=== PATIENT | male | born 1995 | race Caucasian/White ===

== ENCOUNTER 2020-07-23 12:22 | Emergency (ER) | payer MEDICAID, SELFPAY ==
--- NOTE | 2020-07-23 | ECG_ITS ---
Test Reason : +DVT Blood Pressure : / mmHG Vent. Rate : 063 BPM Atrial Rate : 063 BPM P-R Int : 182 ms QRS Dur : 070 ms QT Int : 398 ms P-R-T Axes : 070 074 062 degrees QTc Int : 407 ms Normal sinus rhythm Normal ECG No previous ECGs available Referred By: Asim Blue Electronically Signed By:Shant Blank
--- NOTE | ~2020-07-23 | US_ITS ---
EXAMINATION: US VENOUS ULTRASOUND WITH DOPPLER LOWER EXTREMITY, LEFT CLINICAL INFORMATION: Pain and swelling. COMPARISON: No priors. TECHNIQUE: Ultrasound of the deep veins is performed from the hip to the calf with compression sonography and color and pulse Doppler assessment. Spectral analysis with color-flow imaging is performed. FINDINGS: Near completely occlusive thrombus is noted in the femoral vein proximal, mid, and distal portions as well as the popliteal vein, peroneal vein, and posterior tibial vein respectively. The visualized common femoral vein, greater saphenous vein, and profunda femoral vein shows no evidence of deep venous thrombosis. There is no significant popliteal fossa cyst. US/US venous duplex LE LT IMPRESSION: Left lower extremity: Near occlusive DVT in the femoral vein, popliteal vein, peroneal vein, and posterior tibial vein.
--- NOTE | ~2020-07-23 | CT_ITS ---
EXAMINATION: CT ANGIOGRAM OF THE CHEST WITH AND WITHOUT CONTRAST (CT PULMONARY ANGIOGRAM FOR PE) CLINICAL INFORMATION: DVT, rule out PE COMPARISON: None TECHNIQUE: Prior to contrast administration, noncontrast localization images were obtained. Subsequently, multidetector volumetric imaging was performed from the thoracic inlet to below the diaphragms following the administration of 66 mL Omnipaque 350 intravenous contrast. No contrast reaction reported Sagittal, coronal, and MIP oblique sagittal reformatted images were obtained on the CT workstation, uploaded to PACS, and reviewed. This CT examination was performed using dose optimization techniques as appropriate, variously including the following: *Automated exposure control *Adjustment of mA and/or kV according to patient size (this includes techniques or standardized protocols for targeted exams where dose is matched to indication/reason for exam; i.e. extremities or head) *Use of iterative reconstruction technique Total exam dose-length product 215 mGy-cm FINDINGS: QUALITY OF STUDY/CONTRAST BOLUS: Satisfactory. PULMONARY ARTERIES: Pulmonary embolic burden is very low. There is a small nonocclusive thrombus within the right lower lobe segmental pulmonary artery serving the lateral and posterior segments, nonocclusive. Tiny subsegmental embolus also seen within the left lower lobe, nonocclusive. Reference images are made. THORACIC AORTA: No aneurysm or dissection. LUNG: No focal consolidation, nodules or masses. PLEURA: No pleural effusion or pneumothorax. MEDIASTINUM: Normal heart size. No pericardial effusion. No hilar or mediastinal lymphadenopathy. No evidence of septal bowing or right heart strain. CHEST WALL/AXILLA: No axillary or internal mammary lymphadenopathy. OSSEOUS STRUCTURES: No acute or suspicious osseous abnormality. UPPER ABDOMEN: Unremarkable. No reflux of contrast into the hepatic veins to suggest elevated right heart pressures. CT/CT angio chest PE protocol IMPRESSION: There are 2 areas of nonocclusive pulmonary emboli within the lower lobes, subsegmental on the left and segmental on the right. No evidence of right heart strain. VTE: positive
--- NOTE | ~2020-07-23 | XR_ITS ---
EXAMINATION: XR ANKLE, LEFT CLINICAL INFORMATION: Pain COMPARISON: None TECHNIQUE: AP, lateral, and mortise views of the left ankle. FINDINGS: The bones and soft tissues are normal. No fracture. Alignment is anatomic. Joint spaces are maintained. No joint effusion. XR/XR ankle LT 2V IMPRESSION: Normal left ankle.
[2020-07-23 12:30] VITALS: BP 152/90; PULSE 78; RESP 16; TEMP 36.9; O2SAT 97; BMI 19.8
[2020-07-23 14:26] LABS: MANUAL DIFF FLAG NO
[2020-07-23 14:27] LABS: Basophils Percent Auto 0.4 % (0-2); Eosinophils Absolute Auto 0.5 X10*3/uL (0.0-0.4); Eosinophils Percent Auto 4.2 % (0-4); Hematocrit 34.3 % (42-52); Hemoglobin 11.6 g/dl (14.0-18.0); Imm Gran Abs Auto 0.03 X10*3/uL (0.00-0.03); Imm Gran Pct Auto 0.3 % (0.0-0.4); Lymphocytes Absolute Auto 1.9 X10*3/uL (1.2-4.9); Lymphocytes Percent Auto 17.3 % (20-40); Mean Corpuscular HGB Conc 33.8 g/dl (31.0-36.0); Mean Corpuscular Hemoglobin 29.1 pg (27.0-33.0); Mean Corpuscular Volume 86.2 fL (80-98); Mean Platelet Volume 9.9 fL (9.4-12.4); Monocytes Absolute Auto 0.8 X10*3/uL (0.1-1.2); Monocytes Percent Auto 7.3 % (2-11); Neutrophils Absolute Auto 7.6 X10*3/uL (2.0-8.3); Neutrophils Percent Auto 70.5 % (45-73); Platelet Count 125 X10*3/uL (160-400); Red Blood Count 3.98 X10*6/uL (4.60-5.80); Red Cell Distribution Width 12.4 % (11.0-16.0); White Blood Count 10.8 X10*3/uL (4.8-10.8)
[2020-07-23 14:28] LABS: Appearance Urine CLEAR; Color Urine YELLOW; Glucose Urine UA NEG (NEG); Leukocyte Esterase Urine NEG (NEG); Nitrite Urine NEG (NEG); Urine Blood NEG (NEG); Urine Ketones NEG (NEG); Urine Protein NEG (NEG-TRACE)
--- NOTE | 2020-07-23 14:29 | ED.LOWEXIN ---
HPI - Extremity Injury (Lower) General Chief Complaint: Extremity Injury, Lower Stated Complaint: left leg swelling ?inj Time Seen by Provider: 07/23/20 12:59 Source: patient Mode of arrival: ambulatory Limitations: no limitations History of Present Illness HPI Narrative: This is a otherwise healthy 25-year-old male who denies any significant past medical or surgical history he presents with complaint of left lower extremity pain with swelling around the calf and ankle. 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 States this has occurred 3 days ago and has been persistently present and slightly worsening swelling. He otherwise denies any overt injury or fall, recent travel. No current or previous diagnosis of COVID or COVID like symptoms. He denies any personal or family history of blood disorders. MD complaint: other (Left lower extremity swelling/pain from calf to ankle) Related Data Previous Rx's Medication Instructions Recorded apixaban [Eliquis DVT-PE Treat 30D 5 mg PO PER PKG DIR #74 ea 07/23/20 Start] Allergies Allergy/AdvReac Type Severity Reaction Status Date / Time No Known Allergies Allergy Unverified 02/18/20 16:14 Review of Systems Review of Systems: Constitutional: No Weight loss, No Fever, No Chills, No Night Sweats, No Fatigue, No Malaise ENT/Mouth: No Hearing loss, No Ear Pain, No Nasal Congestion, No Sinus Pain, No Hoarseness, No sore throat, No Rhinorrhea, No Swallowing Difficulty Eyes: No Eye Pain, No Swelling, No Redness, No Foreign Body, No Discharge, No Vision Changes Cardiovascular: No Chest Pain, No SOB, No Dyspnea on Exertion, No Orthopnea, left lower extremity swelling as noted per HPI, No Palpitations Respiratory: No Cough, No Sputum, No Wheezing, No Smoke Exposure, No Dyspnea Gastrointestinal: No Nausea, No Vomiting, No Diarrhea, No Constipation, No abdominal Pain, No Hematochezia, No Melena Genitourinary: No Dysuria, No Urinary Frequency, No Hematuria, No Urinary Incontinence, No Urgency, No Flank Pain, No Urinary Flow Changes, No Hesitancy Musculoskeletal: No joint pain, No Myalgias, No Joint Swelling, left lower extremity swelling as noted per HPI Skin: No Skin Lesions, No rash Neuro: No Weakness, No Numbness, No Paresthesias, No Loss of Consciousness, No Dizziness, No Headache Psych:No Social Issues Heme/Lymph: No Bruising, No Bleeding,No Lymphadenopathy Endocrine: No Polyuria, No Polydipsia, No Temperature Intolerance [facility] Past Medical History Medical History (Updated 07/23/20 @ 16:51 by Asim Blue NP) No known health problems Social History Social History Alcohol intake: never Smoking Status: Current every day smoker Use of substances other than those prescribed or required for medical reasons: No Advance Directives: No Advance Directives Information Provided: No Physical Exam Vital Signs: Vital Signs: Last Vital Signs Temp 98.6 F 07/23/20 15:42 Pulse 80 07/23/20 15:42 Resp 18 07/23/20 15:42 BP 152/90 H 07/23/20 12:30 Pulse Ox 97 07/23/20 15:42 Body Mass Index 19.8 Reviewed Const: Other: Appears relatively poorly kempt, disheveled. Compared to a picture on his ID he appears that he has lost some weight facial features more sunken in. General: cooperative; No acute distress or intoxicated appearing Nutritional Appearance: average body habitus Orientation/consciousness: patient oriented x3 HENMT: Head: Yes normal to inspection Ears: hearing grossly normal bilaterally Eyes: General: appearance normal, both eyes and all related structures Visual Mccray: normal visual mccray by confrontation Neck: Neck: Yes normal visual inspection, No positive Brudzinski's sign, No positive Kernig's sign and No tender Thyroid: Thyroid normal Chest: Chest palpation & inspection: normal inspection of the chest Resp: Effort & Inspection: normal respiratory effort Auscultation: clear to auscultation bilaterally Cardio: Jugular venous distension: no JVD Rate: regular rate Heart sounds: S1 normal heart sound present and S2 normal heart sound present GI: Inspection: Yes normal to inspection Palpation (GI): Soft to palpation Percussion: Yes normal to percussion Auscultation: normal bowel sounds : General: Yes no CVA tenderness Back/Spine/Pelvis: Back: no CVA tenderness Skin: General skin exam: no rashes or lesions noted Neuro: General: patient oriented x3 Extrem: Other: All pulses intact General: Yes normal to inspection Right upper extremity: full ROM Left upper extremity: full ROM and edema (Below the knee to the dorsum foot 1+) Course Reevaluation(s) Reevaluation #1: Ultrasound shows near occlusive DVT in the femoral vein, popliteal vein, peroneal vein, and posterior tibial vein. No risk factors or familial history of blood disorders Given the significance of this labs as well as CT of the chest ordered. Reevaluation #2: 1530 Call from [facility] at this time Very small PE on the left Subsegmental pulmonary artery and Right segmental artery Reevaluation #3: Very reluctant stay states his mother has ALS she is very dependent on him initially he stated the primary care doctor at then he tells me that his father does stay and he is trying to arrange this and would like some time to determine whether he will stay or not. I did review his workup findings and and the recommendations stay. Given this uncertainty he was already given 1 dose of Eliquis after his left lower extremity ultrasound and given these additional findings and recommendation by oncology for him stay I have spoken pharmacy recommendation to wait 8 hours and can start heparin drip at that point. I have placed a heparin order for midnight tonight. Additional Reevaluation(s): I spent over 30 minutes with the patient regarding his findings and plan for admission for further evaluation. 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 He understands that if he leaves AMA that is a possibility of worsening in his condition and including but not limited to . States he understand this but his commitment to his mom and again after an extensive conversation he admits to me that he does occasionally snore heroin but does not feel that this is the reason why he cannot stay. He will leave against medical advice with understanding. I will start him on Eliquis he was given his 1st dose here. I have informed Dr. Palacios of this finding and will try to get him in on Saturday or Saturday. I did advise patient to return if he has any red flag symptoms and if he changes mind. Consultations Consultation #1: Case discussed with vascular surgery Dr. Barnett as it relates to the left lower extremity okay for Eliquis for home and close follow-up. Consultation #2: Case discussed hematology Dr. Palacios Recommendation for heparin GTT and admission for further workup. MDM - Extremity Injury (Lower) Lab Data Attestation: I reviewed the patient's lab results. Result diagrams: 07/23/20 14:19 07/23/20 14:19 Labs: Lab Results 07/23/20 07/23/20 07/23/20 Range/Units 14:19 14:19 14:19 WBC 10.8 (4.8-10.8) X10*3/uL RBC 3.98 L (4.60-5.80) X10*6/uL Hgb 11.6 L (14.0-18.0) g/dl Hct 34.3 L (42-52) % MCV 86.2 (80-98) fL MCH 29.1 (27.0-33.0) pg MCHC 33.8 (31.0-36.0) g/dl RDW 12.4 (11.0-16.0) % Plt Count 125 L (160-400) X10*3/uL MPV 9.9 (9.4-12.4) fL Immature Gran % (Auto) 0.3 (0.0-0.4) % Neut % (Auto) 70.5 (45-73) % Lymph % (Auto) 17.3 L (20-40) % [place] % (Auto) 7.3 (2-11) % Eos % (Auto) 4.2 H (0-4) % Baso % (Auto) 0.4 (0-2) % Lymph # (Auto) 1.9 (1.2-4.9) X10*3/uL [place] # (Auto) 0.8 (0.1-1.2) X10*3/uL Eos # (Auto) 0.5 H (0.0-0.4) X10*3/uL Baso # (Auto) 0.0 (0.0-0.2) X10*3/uL Abs Immat Gran (auto) 0.03 (0.00-0.03) X10*3/uL Absolute Neuts (auto) 7.6 (2.0-8.3) X10*3/uL Absolute Nucleated RBC 0.000 (0.0-0.012) X10*3/uL Nucleated RBC % (auto) 0.0 (0.0-0.2) /100WBC PT 14.7 H (10.8-13.0) SEC INR 1.2 H (0.9-1.1) APTT 36.8 (24.1-38.0) SEC Sodium 139 (135-145) mmol/L Potassium 4.2 (3.3-5.1) mmol/L Chloride 102 (96-108) mmol/L Carbon Dioxide 29 (22-29) mmol/L Anion Gap 12 (12-20) BUN 19 H (9-16) mg/dL Creatinine 0.94 (0.5-1.4) mg/dL Estim Creat Clear Calc 98.4 Estimated GFR > 60 Random Glucose 119 H (60-115) mg/dL Calcium 8.8 (8.4-10.2) mg/dL Total Bilirubin 0.4 (0.0-1.0) mg/dL AST 17 (5-37) U/L ALT 15 (0-40) U/L Alkaline Phosphatase 64 (39-117) U/L Total Protein 7.0 (6.5-8.0) g/dL Albumin 4.1 (3.5-5.0) g/dL Urine Color Urine Appearance Urine pH (5.0-8.0) Ur Specific [place] (1.005-1.025) Urine Protein (NEG-TRACE) MG/DL Urine Glucose (UA) (NEG) MG/DL Urine Ketones (NEG) MG/DL Urine Blood (NEG) Urine Nitrite (NEG) Ur Leukocyte Esterase (NEG) Urine RBC (0) /HPF Urine WBC (0-4) /HPF Ur Squamous Epith Cells /LPF Urine Bacteria /LPF 07/23/20 Range/Units 14:21 WBC (4.8-10.8) X10*3/uL RBC (4.60-5.80) X10*6/uL Hgb (14.0-18.0) g/dl Hct (42-52) % MCV (80-98) fL MCH (27.0-33.0) pg MCHC (31.0-36.0) g/dl RDW (11.0-16.0) % Plt Count (160-400) X10*3/uL MPV (9.4-12.4) fL Immature Gran % (Auto) (0.0-0.4) % Neut % (Auto) (45-73) % Lymph % (Auto) (20-40) % [place] % (Auto) (2-11) % Eos % (Auto) (0-4) % Baso % (Auto) (0-2) % Lymph # (Auto) (1.2-4.9) X10*3/uL [place] # (Auto) (0.1-1.2) X10*3/uL Eos # (Auto) (0.0-0.4) X10*3/uL Baso # (Auto) (0.0-0.2) X10*3/uL Abs Immat Gran (auto) (0.00-0.03) X10*3/uL Absolute Neuts (auto) (2.0-8.3) X10*3/uL Absolute Nucleated RBC (0.0-0.012) X10*3/uL Nucleated RBC % (auto) (0.0-0.2) /100WBC PT (10.8-13.0) SEC INR (0.9-1.1) APTT (24.1-38.0) SEC Sodium (135-145) mmol/L Potassium (3.3-5.1) mmol/L Chloride (96-108) mmol/L Carbon Dioxide (22-29) mmol/L Anion Gap (12-20) BUN (9-16) mg/dL Creatinine (0.5-1.4) mg/dL Estim Creat Clear Calc Estimated GFR Random Glucose (60-115) mg/dL Calcium (8.4-10.2) mg/dL Total Bilirubin (0.0-1.0) mg/dL AST (5-37) U/L ALT (0-40) U/L Alkaline Phosphatase (39-117) U/L Total Protein (6.5-8.0) g/dL Albumin (3.5-5.0) g/dL Urine Color YELLOW Urine Appearance CLEAR Urine pH 7.0 (5.0-8.0) Ur Specific [place] 1.010 (1.005-1.025) Urine Protein NEG (NEG-TRACE) MG/DL Urine Glucose (UA) NEG (NEG) MG/DL Urine Ketones NEG (NEG) MG/DL Urine Blood NEG (NEG) Urine Nitrite NEG (NEG) Ur Leukocyte Esterase NEG (NEG) Urine RBC 0 (0) /HPF Urine WBC 0 (0-4) /HPF Ur Squamous Epith Cells NONE /LPF Urine Bacteria NONE /LPF Imaging Data Left lower extremity ultrasound: Radiologist's impression: [address] [id number] ReportSigned Patient: Fritz LawrenceMR#: [id number]: 1995Acct:[id number]/Sex: 25 / MADM Date: 07/23/20Loc: Lul Dr: Ordering Physician: Asim Blue NP Date of Service: 07/23/20 Procedure(s): US venous duplex LE LT Accession Number(s): [id number] cc: Asim Blue NURSING CENTER TUTOR~ EXAMINATION: US VENOUS ULTRASOUND WITH DOPPLER LOWER EXTREMITY, LEFT CLINICAL INFORMATION: Pain and swelling. COMPARISON: No priors. TECHNIQUE: Ultrasound of the deep veins is performed from the hip to the calf with compression sonography and color and pulse Doppler assessment. Spectral analysis with color-flow imaging is performed. FINDINGS: Near completely occlusive thrombus is noted in the femoral vein proximal, mid, and distal portions as well as the popliteal vein, peroneal vein, and posterior tibial vein respectively. The visualized common femoral vein, greater saphenous vein, and profunda femoral vein shows no evidence of deep venous thrombosis. There is no significant popliteal fossa cyst. US/US venous duplex LE LT IMPRESSION: Left lower extremity: Near occlusive DVT in the femoral vein, popliteal vein, peroneal vein, and posterior tibial vein. Dictated By:Rhonda Connors MDSigned By:<Electronically signed by Rhonda Connors MD in [place]>07/23/20 1415 DD/ 1302TD/TT: Geospatial Systems Integrator: Left ankle x-ray: Radiologist's impression: [address] [id number] ReportSigned Patient: Fritz LawrenceMR#: [id number]: 1995Acct:[id number]/Sex: 25 / MADM Date: 07/23/20Loc: HO.EDAttending Dr: Ordering Physician: Joanna Galvez DO Date of Service: 07/23/20 Procedure(s): XR ankle LT 2V Accession Number(s): [id number] cc: Joanna Galvze DO~ EXAMINATION: XR ANKLE, LEFT CLINICAL INFORMATION: Pain COMPARISON: None TECHNIQUE: AP, lateral, and mortise views of the left ankle. FINDINGS: The bones and soft tissues are normal. No fracture. Alignment is anatomic. Joint spaces are maintained. No joint effusion. XR/XR ankle LT 2V IMPRESSION: Normal left ankle. Dictated By:ZANDRA MARTIN MDSigned By:<Electronically signed by ZANDRA MARTIN MD in [place]>07/23/20 1308 DD/ 1233TD/TT: Geospatial Systems Integrator: DEJA Discharge Plan Discharge Clinical Impression: Pulmonary embolism Qualifiers: Pulmonary embolism type: unspecified Chronicity: acute Acute cor pulmonale presence: unspecified Qualified Code(s): I26.99 - Other pulmonary embolism without acute cor pulmonale DVT of lower limb, acute Qualifiers: Laterality: left Patient Disposition: Left Against Medical Advice Instructions: Deep Vein Thrombosis (ED), Computed Tomography Scan (ED) Additional Instructions: You have blood clots on the both sides of your lungs You have blood clots in the left side of your leg We have recommended that you stay in the hospital for further evaluation and treatment You have declined this with understand that you may go home and get worse and . You will be sign out against medical advice as I have reviewed in great detail Return if you have any change in mind or concerning symptoms as reviewed Started her blood thinners as prescribed Your given her 1st dose of your blood thinner (Eliquis) a prescription has been sent over to her pharmacy You will need to see the blood specialist Dr. Palacios please call on Saturday You also need to see a vascular doctor Dr. Barnett also call Saturday for an appointment Return if any concerns or worsening symptoms Thank you Prescriptions: New Eliquis DVT-PE Treat 30D Start 5 mg (74 tabs) tablets,dose pack 5 mg PO PER PKG DIR Qty: 74 RF: 0 Referrals: Gilberto Palacios MD [Physician] - 1 day Amari Clark NP [Primary Care Provider] - 5 days Durga Barnett MD [Physician] - 2 days Stand Alone Forms: Against Medical Advice
[2020-07-23 14:32] LABS: INTERNATIONAL NORM RATIO 1.2 (0.9-1.1); Prothrombin Time 14.7 SEC (10.8-13.0)
--- NOTE | 2020-07-23 14:33 | PC.NURSE ---
+BILATERAL PEDAL PULSES WITH DOPPLER.
[2020-07-23 14:35] LABS: RBC Urine 0 /HPF (0); WBC Urine 0 /HPF (0-4)
[2020-07-23 14:35] LABS: Partial Thromboplastin Time 36.8 SEC (24.1-38.0)
[2020-07-23 14:48] LABS: Alanine Aminotransferase 15 U/L (0-40); Albumin Level 4.1 g/dL (3.5-5.0); Alkaline Phosphatase 64 U/L (39-117); Anion Gap 12 (12-20); Aspartate Amino Transferase 17 U/L (5-37); Bilirubin Total 0.4 mg/dL (0.0-1.0); Blood Urea Nitrogen 19 mg/dL (9-16); Calcium 8.8 mg/dL (8.4-10.2); Carbon Dioxide 29 mmol/L (22-29); Chloride 102 mmol/L (96-108); Creatinine Clr Calc Pharmacy 98.4; Estimated Glomerular Filt Rate > 60; Glucose Random 119 mg/dL (60-115); Potassium 4.2 mmol/L (3.3-5.1); Sodium 139 mmol/L (135-145)
[2020-07-23] MEDS: Apixaban 5 MG TABLET PO (15:16)
[2020-07-23] MEDS: iohexoL 350 MG/ML 100 ML INFUS..BTL IV (15:17)
[2020-07-23 15:42] VITALS: PULSE 80; RESP 18; TEMP 37; O2SAT 97
[2020-07-23 16:19] LABS: Troponin-I High Sensitivity < 3.5 ng/L (<3.5-35.0)
[2020-07-23 16:56] LABS: Influenza A PCR NEGATIVE (Negative); Influenza B PCR NEGATIVE (Negative); Resp Syncy Virus RNA Qual PCR NEGATIVE (Negative); SARS COV2 PCR INHOUSE NEGATIVE (Negative)
[2020-07-23 17:04] LABS: Amphetamine Screen Urine Not Detected (Not Detect); Barbiturates, Urine Not Detected (Not Detect); Benzodiazepines Screen Urine Not Detected (Not Detect); Cannabinoid Screen Urine POSITIVE (Not Detect); Cocaine Screen Urine Not Detected (Not Detect); Opiate Screen Urine POSITIVE (Not Detect); Phencyclidine Screen Urine Not Detected (Not Detect)
== END 2020-07-23 17:07 | disposition left against medical advice (07) ==
PROVIDERS: Nurse Practitioner Primary Care; Emergency Provider Emergency Medicine; PCP Nurse Practitioner Family
DX: I26.99 Other pulmonary embolism without acute cor pulmonale (principal); I82.402 Acute embolism and thrombosis of unspecified deep veins of left lower extremity; Z20.822 Contact with and (suspected) exposure to COVID-19; F11.20 Opioid dependence, uncomplicated
CPT/HCPCS: 0241U; 36415; 71275; 73600; 80053; 80307; 81001; 84484; 85025; 85610; 85730; 93005; 93971; 96374; 99284; Q9967

== ENCOUNTER 2020-07-23 22:48 | Inpatient (IN) | payer MEDICAID, SELFPAY ==
[2020-07-23 22:51] VITALS: BP 106/56; PULSE 107; RESP 18; TEMP 36.6; O2SAT 99; BMI 20.5
[2020-07-24] VITALS: BP 100/55; PULSE 80; RESP 18; TEMP 36.9; O2SAT 96
--- NOTE | 2020-07-24 00:22 | ED_ITS ---
HPI - General Adult General Chief complaint: General Medical Stated complaint: dvt Time Seen by Provider: 07/24/20 00:21 Source: patient Mode of arrival: ambulatory Limitations: no limitations History of Present Illness HPI narrative: Patient was seen here earlier for left leg swelling and pain for last 3 days diagnosed with near occlusive DVT in left femoral vein to popliteal vein peroneal vein and posterior tibial vein also had PE patient denies any shortness of breath was given Eliquis tablet and plan to admit but patient had family issues and left AMA to go home, now comes back for further management. Earlier provider spoke to oncologist plan was to start him on heparin Onset (ago): day(s) (3) Related Data Home Medications Medication Instructions Recorded Confirmed No Known Home Meds 07/24/20 07/24/20 Allergies Allergy/AdvReac Type Severity Reaction Status Date / Time No Known Allergies Allergy Verified 07/23/20 22:54 Review of Systems Review of Systems: Constitutional : No Weight loss, No Fever, No Chills ENT/Mouth : No sore throat, No Rhinorrhea Eyes: No Eye Pain, No Swelling Cardiovascular : No Chest Pain, no palpitations Respiratory : No Cough, No Sputum, no shortness of breath Gastrointestinal : no Nausea, No Vomiting, No Diarrhea, No abdominal Pain, no black stools Genitourinary : No Dysuria, No Urinary Frequency Musculoskeletal : No joint pain, No Myalgias, No Joint Swelling , left leg swelling+ Skin : No Skin Lesions, No rash Neuro : No Weakness, No Numbness, No Dizziness, No Headache Psych : No Anxiety/Panic, No Depression Heme/Lymph: No Bruising, No Lymphadenopathy Endocrine : No Polyuria, No Polydipsia All other systems reviewed and are negative PMFSH Past Medical History Medical History No known health problems Social History Social History Alcohol intake: never Smoking Status: Current every day smoker Smoked in Last 30 Days: Yes Use of substances other than those prescribed or required for medical reasons: No Advance Directives: No Advance Directives Information Provided: No Physical Exam Vital Signs: Vital Signs: Last Vital Signs Temp 98.4 F 07/24/20 00:00 Pulse 80 07/24/20 00:00 Resp 18 07/24/20 00:00 BP 100/55 L 07/24/20 00:00 Pulse Ox 96 07/24/20 00:00 Body Mass Index 20.5 Appearance: Alert. Oriented X3. No acute distress. Eyes: Pupils equal, round and reactive to light. ENT: Pharynx normal. Neck: Normal inspection. Neck supple. CVS: Normal heart rate and rhythm. Pulses normal. Respiratory: No respiratory distress. Breath sounds normal. Abdomen: Soft and nontender. Bowel sounds are present, no mass palpable, no CVA tenderness Skin: Skin warm and dry. Normal skin color. Normal skin turgor. Extremities: Left leg calf tenderness+ Helen sign positive neurovascular intact Neuro: Oriented X 3. No motor deficit. No sensory deficit. Medical Decision Making MDM Narrative Medical decision making narrative: Patient with massive DVT on left leg with PE without any right ventricular strain or shortness of breath vitals are stable etiology of DVT not very clear no other family member has DVT. At this time will admit patient for IV heparin plan to see drop hammer mechanic in the morning and vascular surgeon to follow Discharge Plan Discharge Clinical Impression: DVT of leg (deep venous thrombosis) Qualifiers: Affected thrombotic vein of extremity: femoral Chronicity: acute Laterality: left Qualified Code(s): I82.412 - Acute embolism and thrombosis of left femoral vein Pulmonary embolism Qualifiers: Pulmonary embolism type: single subsegmental (without acute cor pulmonale) Qualified Code(s): I26.93 - Single subsegmental pulmonary embolism without acute cor pulmonale Patient Disposition: Admitted As Inpatient
--- NOTE | 2020-07-24 01:07 | PM.IMHP ---
History of Present Illness Date of Service: 07/24/20 Chief Complaint: left leg pain 25-year-old male with no significant past medical history presented to the hospital with a chief complaint of left leg pain. Patient mentioned that the pain started about 3 days ago and has been having gradual worsening of the pain along with swelling. Denies any chest pain palpitations lightheadedness dizziness or shortness of breath. Denies fever chills cough. Review of all other systems is negative except mentioned above ER course: Patient initially presented in the morning with these symptoms and had a DVT study which showed complete occlusion of the femoral vein. And CT chest showed segmental and subsegmental PE. Patient was advised to stay in the hospital for further management. 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 He left AMA. At that time he received 1 dose of Eliquis. And subsequently came back to the hospital for admission. Patient was started on heparin drip. ER team also notified the Hematology-Oncology and vascular surgery. [facility] Medical History No known health problems Social History Alcohol intake: never Smoking Status: Current every day smoker Smoked in Last 30 Days: Yes Use of substances other than those prescribed or required for medical reasons: No Advance Directives: No Advance Directives Information Provided: No Meds Allergies Allergy/AdvReac Type Severity Reaction Status Date / Time No Known Allergies Allergy Verified 07/23/20 22:54 Active Medications: Current Medications Generic Name Dose Route Start Last Admin Trade Name Nicolasa PRN Reason Stop Dose Admin Acetaminophen 650 mg 07/24/20 01:04 Acetaminophen 325 Mg Tablet PO Q6H PRN Pain, Mild (Pain Scale 1-3) Heparin Sodium (Porcine) 2,400 unit 07/24/20 00:26 Heparin Sodium,Porcine 5,000 Unit/Ml Vial 40 unit/kg (2400 unit) IVPUSH BOLUS PRN 40 unit/kg - Heparin Protocol Heparin Sodium/Sodium Chloride 25,000 unit in 250 mls @ 0 mls/hr 07/24/20 00:30 IVCONT .Q0M ORLIN Protocol Per Protocol Heparin Sodium/Sodium Chloride 25,000 unit in 250 mls @ 0 mls/hr 07/24/20 01:15 IVCONT .Q0M [facility] Protocol Per Protocol Sodium Chloride 3 ml 07/24/20 08:00 0.9 % Sodium Chloride Flush 3 Ml Syringe IVFLUSH QSHIFT [facility] Home Medications Medication Instructions Recorded Confirmed Last Taken Type No Known Home Meds 07/24/20 07/24/20 Unknown History Physical Exam Vital Signs and Narrative: Vital Signs: Last Vital Signs Temp 98.4 F 07/24/20 00:00 Pulse 80 07/24/20 00:00 Resp 18 07/24/20 00:00 BP 100/55 L 07/24/20 00:00 Pulse Ox 96 07/24/20 00:00 Body Mass Index 20.5 Gen: Appears be in no acute distress HEENT: NCAT, Moist mucosa. Pulmonary: Vesicular breath sounds, fair air entry CVS: Normal S1-S2 Abdomen: BS+, Soft, Nontender Extremities: Warm well perfused; left leg he has warm, tender and swollen. Neuro: Alert and awake. Assessment and Plan (1) DVT of leg (deep venous thrombosis): Qualifiers: Affected thrombotic vein of extremity: femoral Chronicity: acute Laterality: left Qualified Code(s): I82.412 - Acute embolism and thrombosis of left femoral vein Status: Acute 25-year-old male with no significant past medical history presented to the hospital with a chief complaint of left lower extremity pain , swelling noted to have DVT as well as PE. Admitted to the hospital for further management. DVT/PE: Left lower extremity duplex showed complete occlusion of the left femoral vein.-consulted vascular surgery for further recommendations. CT chest showed segmental and subsegmental PE. No right heart strain noted vital stable, troponin negative.-will obtain echocardiogram. Continue heparin drip Will consult Oncology for further recommendations Substance abuse: Patient's U tox positive for opiates and cannabis. Counseled to avoid illicit drug use. Code status: Full code
[2020-07-24 01:10] LABS: PTT Heparin Drip 37.9 SEC (53-77.9)
[2020-07-24] MEDS: Heparin Sodium,Porcine/1/2NS 25,000 UNIT/250 ML IV.SOLN 8.57 UNIT IVCONT (01:36)
[2020-07-24 01:38] VITALS: BP 102/56; PULSE 68; RESP 18; TEMP 36.6; O2SAT 96
[2020-07-24 06:12] VITALS: PULSE 70; RESP 19
[2020-07-24 07:02] LABS: MANUAL DIFF FLAG NO
[2020-07-24 07:09] LABS: Basophils Absolute Auto 0.1 X10*3/uL (0.0-0.2); Basophils Percent Auto 0.5 % (0-2); Eosinophils Absolute Auto 0.5 X10*3/uL (0.0-0.4); Eosinophils Percent Auto 4.3 % (0-4); Hematocrit 34.9 % (42-52); Hemoglobin 11.9 g/dl (14.0-18.0); Imm Gran Abs Auto 0.04 X10*3/uL (0.00-0.03); Imm Gran Pct Auto 0.4 % (0.0-0.4); Lymphocytes Absolute Auto 2.9 X10*3/uL (1.2-4.9); Lymphocytes Percent Auto 27.2 % (20-40); Mean Corpuscular HGB Conc 34.1 g/dl (31.0-36.0); Mean Corpuscular Hemoglobin 29.5 pg (27.0-33.0); Mean Corpuscular Volume 86.4 fL (80-98); Mean Platelet Volume 9.8 fL (9.4-12.4); Monocytes Absolute Auto 0.9 X10*3/uL (0.1-1.2); Monocytes Percent Auto 8.7 % (2-11); Neutrophils Absolute Auto 6.3 X10*3/uL (2.0-8.3); Neutrophils Percent Auto 58.9 % (45-73); Platelet Count 135 X10*3/uL (160-400); Red Blood Count 4.04 X10*6/uL (4.60-5.80); Red Cell Distribution Width 12.5 % (11.0-16.0); White Blood Count 10.6 X10*3/uL (4.8-10.8)
[2020-07-24 07:29] LABS: Anion Gap 12 (12-20); Blood Urea Nitrogen 19 mg/dL (9-16); Calcium 8.4 mg/dL (8.4-10.2); Carbon Dioxide 29 mmol/L (22-29); Chloride 103 mmol/L (96-108); Creatinine Clr Calc Pharmacy 105.6; Estimated Glomerular Filt Rate > 60; Glucose Random 85 mg/dL (60-115); Potassium 4.4 mmol/L (3.3-5.1); Sodium 140 mmol/L (135-145)
[2020-07-24] MEDS: Apixaban 5 MG TABLET 10 MG PO (10:19)
[2020-07-24 11:26] VITALS: BP 103/65; PULSE 75; RESP 14; TEMP 36.4; O2SAT 97
--- NOTE | 2020-07-24 14:03 | PM.HEMONCCN ---
Subjective - Subjective Chief complaint: DVT/PE Patient: new to practice Consult date: 07/24/20 Primary Care Provider: Unknown Physician HPI - Consult Narrative Reason for consult: DVT/PE Narrative: Fritz Lawrence is a 25 year old male who has been found to have extensive thrombosis of the left leg veins and two small pulmonary emboli. He has no family history of clotting or bleeding disorders. Review of Systems - Constitutional Reports weakness - Gastrointestinal Reports other - Genitourinary Genitourinary: Reports other - Musculoskeletal Reports radiating pain into limb - Integumentary/Breasts Skin/Breast: Reports skin pain - Neurologic Reports system reviewed and no additional complaints, except as documented Oncology Screenings - G8 Geriatric Assessment Change in food intake over past 3 months: No decrease in food intake Weight loss during the last 3 months: Does not know Mobility: Goes out Neuropsychological problems: No psychological problems Body Mass Index: 23 or greater Patient takes > 3 prescription drugs per day: No Patient's assessment of health status compared to others: Does not know Patient age: < 80 G8 Score: 14 G8 Risk Level: Intermediate risk for early functional decline and reduced survival [facility] Medical History: Medical History (Last Reviewed 07/24/20 @ 00:35 by Arcadio Monzon MD) No known health problems Social History: Social History (Last Reviewed 07/24/20 @ 00:35 by Arcadio Monzon MD) Alcohol History: Alcohol intake: never Tobacco History: Smoking Status: Current every day smoker Smoked in Last 30 Days: Yes Substance Use History: Use of substances other than those prescribed or required for medical reasons: No Advance Directives: Advance Directives: No Advance Directives Information Provided: No Smoking status: Current every day smoker Home Medications and Allergies Current Medications: Current Medications Generic Name Dose Route Start Last Admin Trade Name Freq PRN Reason Stop Dose Admin Acetaminophen 650 mg 07/24/20 01:04 Acetaminophen 325 Mg Tablet PO Q6H PRN Pain, Mild (Pain Scale 1-3) Apixaban 10 mg 07/24/20 09:30 07/24/20 10:19 Apixaban 5 Mg Tablet PO 10 mg BID ORLIN Administration Methadone HCl 30 mg 07/24/20 10:15 07/24/20 11:22 Methadone Hcl 1 Mg/0.1 Ml Oral.Conc PO 30 mg DAILY ORLIN Administration Sodium Chloride 3 ml 07/24/20 08:00 07/24/20 08:41 0.9 % Sodium Chloride Flush 3 Ml Syringe IVFLUSH Not Given QSHIFT [facility] Home Medications Medication Instructions Recorded Confirmed Type No Known Home Meds 07/24/20 07/24/20 History Allergies Allergy/AdvReac Type Severity Reaction Status Date / Time No Known Allergies Allergy Verified 07/23/20 22:54 Physical Exam Vital signs: Vital Signs Temp 97.6 F 07/24/20 11:26 Pulse 75 07/24/20 11:26 Resp 14 07/24/20 11:26 BP 103/65 07/24/20 11:26 Pulse Ox 97 07/24/20 11:26 Intake & Output 07/23/20 07/24/20 07/24/20 18:59 06:59 18:59 Intake Total 0 / 0 62.418 / 62.418 Balance 0 / 0 62.418 / 62.418 Intake: Intake, Oral Amount 0 / 0 Intake, IV Amount 62.418 / 62.418 Heparin Sodium,Porcine/1/2NS 25 62.418 / 62.418 ,000 unit In 250 ml @ Per Protocol IVCONT .Q0M [facility] Rx#: [id number] Other: Meal Refused No NPO No Weight 61.235 kg Weight 61.235 kg - Constitutional Present: no acute distress - Routine HEENT Exam Head: Present: atraumatic Eye: Present: normal appearance ENT: Present: normal exam - Routine Neck Exam Present: supple - Routine Chest/Breast/Axilla Exam Breast: Present: Normal Exam - Routine Respiratory Exam Present: decreased breath sounds - Routine Cardiovascular Exam Cardiovascular: Present: RRR - Routine Abdominal Exam Present: hyperactive bowel sounds - Routine Rectal Exam Patient deferred: visual exam - Routine Extremities Exam Present: calf tenderness Hem/Onc Consult Result - Labs CBC & Chem 7: 07/24/20 06:52 07/24/20 06:52 Labs: Short CBC 07/24/20 Range/Units 06:52 WBC 10.6 (4.8-10.8) X10*3/uL Hgb 11.9 L (14.0-18.0) g/dl Hct 34.9 L (42-52) % Plt Count 135 L (160-400) X10*3/uL BMP 07/24/20 06:52 Sodium 140 Potassium 4.4 Chloride 103 Carbon Dioxide 29 BUN 19 H Creatinine 0.91 Calcium 8.4 Assessment and Plan (1) DVT of leg (deep venous thrombosis) Start date: 07/24/20 (He is appropriately on lmw heparin. He is stable. A thrombophilia work up has been ordered. He may start on Eliquis.) Status: Acute Qualifiers: Affected thrombotic vein of extremity: femoral Chronicity: acute Laterality: left Qualified Code(s): I82.412 - Acute embolism and thrombosis of left femoral vein
[2020-07-24 14:14] VITALS: BP 102/72; PULSE 70; RESP 19; TEMP 36.6; O2SAT 98
[2020-07-24 15:02] LABS: PTT Heparin Drip 98.3 SEC (53-77.9)
[2020-07-24] MEDS: 0.9 % Sodium Chloride Flush 3 ML SYRINGE IVFLUSH (16:37)
--- NOTE | 2020-07-24 18:02 | PC.NURSE ---
Dr. Painter contacted several times reguarding pt asking to leave AMA, this rn instructed to discharge pt AMA. Pt verbalized understanding of risks, including possible , associated with leaving AMA. Pt is AOX3, appropriate mentation, vss, no apparent distress noted.
--- NOTE | 2020-07-24 18:06 | PC.NURSE ---
Dr. Painter instructed this rn to communicate to pt to follow- up with PCP and Dr. Panchal, return to ED if condition worsens. Pt verbalized understanding.
--- NOTE | 2020-07-24 18:17 | PC.NURSE ---
Heprain drip d/c due to pt leaving AMA.
--- NOTE | 2020-07-25 07:34 | PM.DS ---
DS: Providers Provider Date of Service: 07/27/20 Date of admission: 07/24/20 01:04 Primary care physician: Unknown Physician Consults: 07/24/20 01:02 Consult to Vascular Surgery Routine Consulting Provider: Durga Barnett Reason for consultation: DVT DS: Diagnosis Discharge Diagnosis (1) DVT of leg (deep venous thrombosis): Status: Acute (2) Pulmonary embolism: Status: Acute DS: Medications Discharge Medications Home Medications: Home Medications Medication Instructions Recorded Confirmed No Known Home Meds 07/24/20 07/24/20 DS: Summary Hospital Course Hospital Course: HPI 25-year-old male with no significant past medical history presented to the hospital with a chief complaint of left leg pain. Patient mentioned that the pain started about 3 days ago and has been having gradual worsening of the pain along with swelling. Denies any chest pain palpitations lightheadedness dizziness or shortness of breath. Denies fever chills cough. Review of all other systems is negative except mentioned above ER course: Patient initially presented in the morning with these symptoms and had a DVT study which showed complete occlusion of the femoral vein. And CT chest showed segmental and subsegmental PE. Patient was advised to stay in the hospital for further management. 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 He left AMA. At that time he received 1 dose of Eliquis. And subsequently came back to the hospital for admission. Patient was started on heparin drip. ER team also notified the Hematology-Oncology and vascular surgery. Hospital course 25-year-old male admitted with pulmonary embolism and DVT patient was started on heparin drip, patient was not requiring any oxygen, hematology was consulted recommended continue heparin, vascular surgery was consulted for extensive DVT, vascular consult was pending, patient refused to stay in the hospital and refused further treatment , patient already had Eliquis sent by ER physician, explained to patient to stay in the hospital and get treatment and also explained to patient risk of leaving the hospital and not getting treatment including , patient understands the risk but still refused to stay, 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, 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3 H D Discharge Plan Discharge Patient Disposition: Left Against Medical Advice Referrals: Physician,Unknown [Primary Care Provider] - Discharge Medications: No Action quetiapine 100 mg tablet 1 tab PO BEDTIME PRN (Reason: insomnia) RF: 0 methadone 40 mg Tablet,Soluble 35 mg PO DAILY RF: 0 Eliquis 5 mg Tablet 5 mg PO BID RF: 0 enoxaparin [Lovenox] 60 mg/0.6 mL Syringe 60 mg SUBCUT Q12H Qty: 30 RF: 0 (DME) pair of crutches Kit Qty: 1 RF: 0 Discharge Orders: Discharge Order (Routine); Ordered 07/27/20 Ordered By: Hayden Painter Stand Alone Forms: Against Medical Advice Care Plan Goals: Left against medical advice Health Concerns: Left against medical advice Plan of Treatment: Left against medical advice Discharge Date/Time: 07/24/20 18:48
--- NOTE | 2020-07-25 10:25 | MHC.CM.PN ---
Patient left AMA prior to being seen this morning.
[2020-07-25 13:51] LABS: DRVVT Confirmation NEGATIVE (NEGATIVE); Hexagonal Phase Neutralization NEGATIVE (NEGATIVE); PTT (LAC) Screen 86 sec (< OR = 40)
[2020-07-26 16:17] LABS: Cardiolipin IgG Ab <14 GPL; Cardiolipin IgM Ab 13 MPL
[2020-07-26 20:36] LABS: Anti-Thrombin III Antigen 79 % (80-120)
[2020-07-26 22:12] LABS: Protein C Activity 131 % (70-180); Protein S Activity rflx Tot&Fr 123 % (70-150)
== END 2020-07-24 18:48 | disposition left against medical advice (07) | DRG 197 ==
LOC: HO.ED 07-24 00:40 → HO.EDOVER 07-24 06:45
PROVIDERS: Internal Medicine Medical Oncology; Admitting Provider Hospitalist; Emergency Provider Internal Medicine; Visit Provider Internal Medicine
DX: I82.412 Acute embolism and thrombosis of left femoral vein (principal); I26.93 Single subsegmental thrombotic pulmonary embolism without acute cor pulmonale; F17.210 Nicotine dependence, cigarettes, uncomplicated; Z71.6 Tobacco abuse counseling
CPT/HCPCS: 36415; 80048; 81240; 81241; 83090; 85025; 85301; 85302; 85303; 85305; 85306; 85597; 85613; 85730; 86147; 96374; 99219; 99284; 99285

== ENCOUNTER 2020-08-21 04:01 | Inpatient (IN) | payer MEDICAID, SELFPAY ==
[2020-08-21] VITALS (9 sets, daily range): BP systolic 104–131; BP diastolic 44–97; PULSE 52–97; RESP 13–20; TEMP 36.6–37.2; O2SAT 96–99; BMI 19.2; BMI 21.2
--- NOTE | ~2020-08-21 | XR_ITS ---
EXAMINATION: XR CHEST CLINICAL INFORMATION: CP R side COMPARISON: CT dated 07/31/2020 TECHNIQUE: Frontal view of the chest was obtained. FINDINGS: There is new airspace desiccation at the right lung base laterally. There is associated volume loss in this region. Left lung is clear. No pneumothorax or pleural effusion. Cardiac and mediastinal contours are normal. The pulmonary vasculature is unremarkable. No acute osseous abnormalities. XR/XR chest 1V IMPRESSION: Patchy airspace opacification in the lateral aspect of the right lung base associated volume loss. This may correspond atelectasis, though causes of consolidation such as pneumonia, aspiration, or contusion are also possible.
--- NOTE | ~2020-08-21 | CT_ITS ---
EXAMINATION: CT ANGIOGRAM OF THE CHEST WITH AND WITHOUT CONTRAST (CT PULMONARY ANGIOGRAM FOR PE) CLINICAL INFORMATION: Reason for Exam worsening R CP and SOB, had PE 07/25 COMPARISON: 07/23/2020 TECHNIQUE: Prior to contrast administration, noncontrast localization images were obtained. Subsequently, multidetector volumetric imaging was performed from the thoracic inlet to below the diaphragms following the administration of 65 mL Omnipaque 350 intravenous contrast. No contrast reaction reported Sagittal, coronal, and MIP oblique sagittal reformatted images were obtained on the CT workstation, uploaded to PACS, and reviewed. This CT examination was performed using dose optimization techniques as appropriate, variously including the following: *Automated exposure control *Adjustment of mA and/or kV according to patient size (this includes techniques or standardized protocols for targeted exams where dose is matched to indication/reason for exam; i.e. extremities or head) *Use of iterative reconstruction technique Total exam dose-length product 263 mGy-cm FINDINGS: QUALITY OF STUDY/CONTRAST BOLUS: Satisfactory. PULMONARY ARTERIES: Acute pulmonary emboli are present within the lobar, segmental, and subsegmental branches of the right upper and right lower lobes. A subsegmental pulmonary emphysema was may be present within the lateral basilar segmental pulmonary artery to the left lower lobe, though assessment of this region is somewhat limited by motion artifact. Pulmonary arteries are normal in caliber. THORACIC AORTA: No aneurysm or dissection. LUNG: Patchy airspace consolidation is developing within the right lower lobe with groundglass attenuation, but has a corresponding to developing pulmonary infarct. There is associated atelectasis in the right lower lobe. Trace dependent atelectasis in the left lower lobe. Central airways are clear. PLEURA: No pleural effusion or pneumothorax. MEDIASTINUM: Normal heart size. No pericardial effusion. No hilar or mediastinal lymphadenopathy. No evidence of septal bowing or right heart strain. CHEST WALL/AXILLA: No axillary or internal mammary lymphadenopathy. OSSEOUS STRUCTURES: No acute or suspicious osseous abnormality. UPPER ABDOMEN: Unremarkable. Trace reflux of contrast material into the right hepatic veins. CT/CT angio chest PE protocol IMPRESSION: 1. A moderate volume of acute pulmonary emboli within the pulmonary arteries to the right lung and a probable small subsegmental pulmonary embolus in the left lower lobe. These are new as compared to the prior study from 07/23/2020. There is slight reflux of contrast material into the right hepatic veins, though no additional signs of elevated right heart pressure or right heart strain. 2. Airspace consolidation in the right lower lobe, potentially corresponding to a developing pulmonary infarct. This critical result was discussed by telephone with Dr. Couch on 08/21/2020 7:05 AM. VTE: positive
--- NOTE | ~2020-08-21 | US_ITS ---
EXAMINATION: US VENOUS ULTRASOUND WITH DOPPLER LOWER EXTREMITY, BILATERAL CLINICAL INFORMATION: PE/DVT COMPARISON: Previous left lower extremity venous ultrasound TECHNIQUE: Ultrasound of the deep veins is performed from the hip to the calf with compression sonography and color and pulse Doppler assessment. Spectral analysis with color-flow imaging is performed. FINDINGS: RIGHT: There is normal venous compression and respiratory variation and augmented flow. The visualized common femoral vein, superficial femoral vein, profunda femoral vein, popliteal vein, and the trifurcation region shows no evidence of deep venous thrombosis. There is thrombus seen in the right greater saphenous vein. There is no significant popliteal fossa cyst. LEFT: The left common femoral vein is patent. The left profunda is patent. There is persistent thrombus seen in the left superficial femoral, popliteal, posterior tibial and peroneal veins. Is evidence of some recanalization in the posterior tibial and peroneal veins and some areas of the superficial femoral vein. There is no Trejo's cyst. US/US venous duplex LE BI IMPRESSION: Persistent thrombus in the left superficial femoral, popliteal and posterior tibial and peroneal veins with minimal recanalization. Thrombus seen in the visualized right greater saphenous vein.
--- NOTE | 2020-08-21 04:44 | PC.NURSE ---
decreased breath sounds and fine crackles on loer right base. pt in no visable distress.
--- NOTE | 2020-08-21 04:45 | ED_ITS ---
HPI - General Adult General Chief complaint: Back Pain/Injury Stated complaint: Rib pain Time Seen by Provider: 08/21/20 04:31 Source: patient Mode of arrival: ambulatory Limitations: no limitations History of Present Illness HPI narrative: Patient comes emergency room complaining of right-sided chest pain. Patient states every time he takes a big breath, he has sharp pain. Patient states that he also feels the pain on the back upper aspect on the right side. Patient is currently on Lovenox, he was diagnosed with DVTs and PEs on July 24. Patient states that he is compliant with the Lovenox. Patient was seen by Hematology-Oncology on August 16, he was advised to continue using Lovenox for 10 more days, then transition to Eliquis. Patient states his left lower extremity is still swollen, hurts less than when he was admitted. MD complaint: Sharp pain on the right side of the chest Related Data Home Medications Medication Instructions Recorded Confirmed methadone 35 mg PO DAILY 07/26/20 08/21/20 quetiapine 1 tab PO BEDTIME PRN 07/26/20 08/21/20 Previous Rx's Medication Instructions Recorded enoxaparin [Lovenox] 60 mg SUBCUT Q12H #30 ml 07/26/20 pair of crutches #1 ea 07/26/20 Allergies Allergy/AdvReac Type Severity Reaction Status Date / Time No Known Allergies Allergy Verified 07/23/20 22:54 Review of Systems Review of Systems: Constitutional : No Weight loss, No Fever, No Chills, No Night Sweats, No Fatigue, No Malaise ENT/Mouth : No Hearing loss, No Ear Pain, No Nasal Congestion, No Sinus Pain, No Hoarseness, No sore throat, No Rhinorrhea, No Swallowing Difficulty Eyes: No Eye Pain, No Swelling, No Redness, No Foreign Body, No Discharge, No Vision Changes Cardiovascular : Complaining of sharp right-sided chest pain under axilla, No SOB, No Dyspnea on Exertion, No Orthopnea, No Edema, No Palpitations Respiratory : No Cough, No Sputum, No Wheezing, No Smoke Exposure, No Dyspnea Gastrointestinal : No Nausea, No Vomiting, No Diarrhea, No Constipation, No abdominal Pain, No Hematochezia, No Melena Genitourinary : no irregular bleeding, No Dysuria, No Urinary Frequency, No Hematuria, No Urinary Incontinence, No Urgency, No Flank Pain, No Urinary Flow Changes, No Hesitancy Musculoskeletal : No joint pain, No Myalgias, No Joint Swelling Skin : No Skin Lesions, No rash Neuro : No Weakness, No Numbness, No Paresthesias, No Loss of Consciousness, No Dizziness, No Headache Psych : No Anxiety/Panic, No Depression, No SI/HI/AH/VH, No Social Issues, Heme/Lymph: No Bruising, No Bleeding,No Lymphadenopathy Endocrine : No Polyuria, No Polydipsia, No Temperature Intolerance [facility] Past Medical History Medical History (Updated 08/21/20 @ 07:29 by Isi Couch MD) Bilateral pulmonary embolism Drug addiction in remission Knee effusion Left leg DVT Surgical History (Updated 08/16/20 @ 14:50 by Lucy Panchal MD) Hx of knee surgery Family History Family History (Updated 07/26/20 @ 11:08 by Ana Franks) Mother ALS (amyotrophic lateral sclerosis) Maternal Grandfather Lung cancer Paternal Grandmother Lung cancer Maternal Grandmother Diabetes Sister Asthma Social History Social History (Updated 07/26/20 @ 11:08 by Ana Franks) Alcohol intake: former Smoking Status: Current every day smoker Tobacco Type: Cigarette Packs Per Day: 0.5 Substance Use Type: Crack/Cocaine, IV Drugs and Marijuana Advance Directives: No Advance Directives Information Provided: No Physical Exam Vital Signs: Vital Signs: Last Vital Signs Temp 98.7 F 08/21/20 04:13 Pulse 64 08/21/20 07:28 Resp 13 08/21/20 07:28 BP 104/64 08/21/20 06:00 Pulse Ox 97 08/21/20 06:00 Body Mass Index 19.2 Course Course Course Narrative: I discussed the patient with Dr. Panchal. CT scan shows worsening burning , potentially developing pulmonary infarct. Patient missed l ast night's dose of Lovenox. At this time, we will treat the patient with IV bolus of heparin and heparin drip. Patient is hemodynamically stable, no shortness of breath. Patient being admitted, spoke to Dr. Rodriguez. Patient being admitted Medical Decision Making Lab Data Result diagrams: 08/21/20 05:05 08/21/20 05:05 Labs: Lab Results 08/21/20 08/21/20 08/21/20 Range/Units 05:05 05:05 05:05 WBC 11.8 H (4.8-10.8) X10*3/uL RBC 3.77 L (4.60-5.80) X10*6/uL Hgb 10.9 L (14.0-18.0) g/dl Hct 32.8 L (42-52) % MCV 87.0 (80-98) fL MCH 28.9 (27.0-33.0) pg MCHC 33.2 (31.0-36.0) g/dl RDW 12.8 (11.0-16.0) % Plt Count 124 L (160-400) X10*3/uL MPV 9.8 (9.4-12.4) fL Immature Gran % (Auto) 0.3 (0.0-0.4) % Neut % (Auto) 68.8 (45-73) % Lymph % (Auto) 19.6 L (20-40) % [place] % (Auto) 9.2 (2-11) % Eos % (Auto) 1.8 (0-4) % Baso % (Auto) 0.3 (0-2) % Lymph # (Auto) 2.3 (1.2-4.9) X10*3/uL [place] # (Auto) 1.1 (0.1-1.2) X10*3/uL Eos # (Auto) 0.2 (0.0-0.4) X10*3/uL Baso # (Auto) 0.0 (0.0-0.2) X10*3/uL Abs Immat Gran (auto) 0.04 H (0.00-0.03) X10*3/uL Absolute Neuts (auto) 8.1 (2.0-8.3) X10*3/uL Absolute Nucleated RBC 0.000 (0.0-0.012) X10*3/uL Nucleated RBC % (auto) 0.0 (0.0-0.2) /100WBC D-Dimer 964 NG/ML Sodium 138 (135-145) mmol/L Potassium 4.3 (3.3-5.1) mmol/L Chloride 101 (96-108) mmol/L Carbon Dioxide 30 H (22-29) mmol/L Anion Gap 11 L (12-20) BUN 16 (9-16) mg/dL Creatinine 0.85 (0.5-1.4) mg/dL Estim Creat Clear Calc 108.8 Estimated GFR > 60 Random Glucose 123 H D (60-115) mg/dL Calcium 8.8 (8.4-10.2) mg/dL Imaging Data CT PE: Radiologist's impression: PULMONARY ARTERIES: Acute pulmonary emboli are present within the lobar, segmental, and subsegmental branches of the right upper and right lower lobes. A subsegmental pulmonary emphysema was may be present within the lateral basilar segmental pulmonary artery to the left lower lobe, though assessment of this region is somewhat limited by motion artifact. Pulmonary arteries are normal in caliber. THORACIC AORTA: No aneurysm or dissection. LUNG: Patchy airspace consolidation is developing within the right lower lobe with groundglass attenuation, but has a corresponding to developing pulmonary infarct. There is associated atelectasis in the right lower lobe. Trace dependent atelectasis in the left lower lobe. Central airways are clear. PLEURA: No pleural effusion or pneumothorax. MEDIASTINUM: Normal heart size. No pericardial effusion. No hilar or mediastinal lymphadenopathy. No evidence of septal bowing or right heart strain. CHEST WALL/AXILLA: No axillary or internal mammary lymphadenopathy. OSSEOUS STRUCTURES: No acute or suspicious osseous abnormality. UPPER ABDOMEN: Unremarkable. Trace reflux of contrast material into the right hepatic veins. CT/CT angio chest PE protocol IMPRESSION: 1. A moderate volume of acute pulmonary emboli within the pulmonary arteries to the right lung and a probable small subsegmental pulmonary embolus in the left lower lobe. These are new as compared to the prior study from 07/23/2020. There is slight reflux of contrast material into the right hepatic veins, though no additional signs of elevated right heart pressure or right heart strain. 2. Airspace consolidation in the right lower lobe, potentially corresponding to a developing pulmonary infarct. This critical result was discussed by telephone with Dr. Couch on 08/21/2020 7:05 AM. VTE: positive ECG Data Attestation: I personally reviewed and interpreted this ECG as follows: (Heart rate 62, first-degree AV block, QTC 397, no ST segment depression, nonspecific T-wave elevation in V4 V5 V6 1 mm with no reciprocal changes) Discharge Plan Discharge Clinical Impression: Pulmonary embolism and infarction Patient Disposition: Admitted As Inpatient
[2020-08-21 05:09] LABS: Basophils Percent Auto 0.3 % (0-2); Eosinophils Absolute Auto 0.2 X10*3/uL (0.0-0.4); Eosinophils Percent Auto 1.8 % (0-4); Hematocrit 32.8 % (42-52); Hemoglobin 10.9 g/dl (14.0-18.0); Imm Gran Abs Auto 0.04 X10*3/uL (0.00-0.03); Imm Gran Pct Auto 0.3 % (0.0-0.4); Lymphocytes Absolute Auto 2.3 X10*3/uL (1.2-4.9); Lymphocytes Percent Auto 19.6 % (20-40); MANUAL DIFF FLAG NO; Mean Corpuscular HGB Conc 33.2 g/dl (31.0-36.0); Mean Corpuscular Hemoglobin 28.9 pg (27.0-33.0); Mean Platelet Volume 9.8 fL (9.4-12.4); Monocytes Absolute Auto 1.1 X10*3/uL (0.1-1.2); Monocytes Percent Auto 9.2 % (2-11); Neutrophils Absolute Auto 8.1 X10*3/uL (2.0-8.3); Neutrophils Percent Auto 68.8 % (45-73); Platelet Count 124 X10*3/uL (160-400); Red Blood Count 3.77 X10*6/uL (4.60-5.80); Red Cell Distribution Width 12.8 % (11.0-16.0); White Blood Count 11.8 X10*3/uL (4.8-10.8)
[2020-08-21 05:31] LABS: D Dimer 964 NG/ML
[2020-08-21 05:33] LABS: Anion Gap 11 (12-20); Blood Urea Nitrogen 16 mg/dL (9-16); Calcium 8.8 mg/dL (8.4-10.2); Carbon Dioxide 30 mmol/L (22-29); Chloride 101 mmol/L (96-108); Creatinine Clr Calc Pharmacy 108.8; Estimated Glomerular Filt Rate > 60; Glucose Random 123 mg/dL (60-115); Potassium 4.3 mmol/L (3.3-5.1); Sodium 138 mmol/L (135-145)
--- NOTE | 2020-08-21 05:40 | PC.NURSE ---
pt in no distress, seated upright and sound asleep. pt needed to be tapped on leg and voice called to wake. asked pt if he took any pain medications, he denied anything.
--- NOTE | 2020-08-21 06:45 | PC.NURSE ---
pt placed on registered nurse cardiac telemetry, nsr 68 bpm. pt experienced increased pain while in a supine position in CT scan. pt has spo2 99% room air, no distress.
--- NOTE | 2020-08-21 07:22 | ECG_ITS ---
Test Reason : SHORTNESS OF BREATH Blood Pressure : / mmHG Vent. Rate : 062 BPM Atrial Rate : 062 BPM P-R Int : 224 ms QRS Dur : 084 ms QT Int : 392 ms P-R-T Axes : 006 061 029 degrees QTc Int : 397 ms Sinus rhythm with 1st degree A-V block Otherwise normal ECG When compared with ECG of 23-JUL-2020 16:09, MN interval has increased Referred By: Isi Couch Electronically Signed By:ASIA TONEY MD
--- NOTE | 2020-08-21 07:36 | PC.NURSE ---
pt received in bed, alert and responsive. ZAMORA, follows commands. To be admitted for PE. Med reconciliation complete, lab drawn pending prior to heparin adminsitration. Pt states is a patient at [facility]. Called to confirm medication dose; awaiting callback.
[2020-08-21 07:47] LABS: INTERNATIONAL NORM RATIO 1.2 (0.9-1.1); Prothrombin Time 14.2 SEC (10.8-13.0)
[2020-08-21 07:50] LABS: Partial Thromboplastin Time 31.1 SEC (24.1-38.0)
[2020-08-21] MEDS: Heparin Sodium,Porcine 5,000 UNIT/ML VIAL 5000 UNIT IVPUSH (08:52)
[2020-08-21] MEDS: Heparin Sodium,Porcine/1/2NS 25,000 UNIT/250 ML IV.SOLN 8.26 UNIT IVCONT (09:08)
--- NOTE | 2020-08-21 09:19 | PC.NURSE ---
heparin bolus give, drip started. 2nd call to [facility] for verified methadone dose. Harper states she will call me back with a verified dosage.
--- NOTE | 2020-08-21 09:35 | PM.IMHP ---
History of Present Illness Date of Service: 08/21/20 Chief Complaint: Chest pain 25-year-old man presenting to the ER with complaints of right-sided sharp chest pain with inspiration with radiation to his upper back on the right side. Patient was diagnosed with DVT in PE in July of 2020. He was placed on Lovenox with intention to transition to Eliquis. He states compliance with his Lovenox but states he did not take it last night. He does have a history of heroin abuse and reported that he last use approximately 1 week ago. He had been using much heavier but went to rehab and is currently on methadone. In terms of his blood clots he was initially diagnosed 3 months ago with right upper extremity DVT and reported that at that time he had been shooting up heroin. In the ER, chest CT showed moderate volume of acute pulmonary emboli within the pulmonary arteries to the right lung and probable small cell segmental pulmonary embolus in the left lower lobe, new compared to prior study on 07/23/2020. Possible pulmonary infarction also seen. D-dimer remains elevated 964 however down from 2561 on August 16. His vital signs are stable, is not noted to be hypoxic. He was started on IV heparin drip. He will be admitted for further management and treatment of worsening PE. Review of Systems Review of Systems: Denies any recent fever chills or decrease in appetite respiratory denies any shortness of breath coverage production cardiovascular see HPI gastrointestinal denies any dysphagia abdominal pain nausea vomiting or diarrhea genitourinary denies any dysuria frequency or hematuria musculoskeletal See HPI neuropsych denies any weakness or seizures all other systems reviewed are negative [facility] Medical History (Updated 08/21/20 @ 07:29 by Isi Couch MD) Bilateral pulmonary embolism Drug addiction in remission Knee effusion Left leg DVT Family History (Updated 07/26/20 @ 11:08 by Ana Franks) Mother ALS (amyotrophic lateral sclerosis) Maternal Grandfather Lung cancer Paternal Grandmother Lung cancer Maternal Grandmother Diabetes Sister Asthma Surgical History (Updated 08/16/20 @ 14:50 by Lucy Panchal MD) Hx of knee surgery Social History (Updated 07/26/20 @ 11:08 by Ana Franks) Alcohol intake: former Smoking Status: Current every day smoker Tobacco Type: Cigarette Packs Per Day: 0.5 Substance Use Type: Crack/Cocaine, IV Drugs and Marijuana Advance Directives: No Advance Directives Information Provided: No Meds Allergies Allergy/AdvReac Type Severity Reaction Status Date / Time No Known Allergies Allergy Verified 07/23/20 22:54 Active Medications: Current Medications Generic Name Dose Route Start Last Admin Trade Name Nicolasa PRN Reason Stop Dose Admin Heparin Sodium/Sodium Chloride 25,000 unit in 250 mls @ 0 mls/hr 08/21/20 07:30 08/21/20 09:08 IVCONT 14 units/kg/hr .Q0M ORLIN 8.26 mls/hr Administration Protocol Per Protocol Home Medications Medication Instructions Recorded Confirmed Last Taken Type methadone 35 mg PO DAILY 07/26/20 08/21/20 08/20/20 History quetiapine 1 tab PO BEDTIME PRN 07/26/20 08/21/20 08/20/20 History Physical Exam Vital Signs and Narrative: Vital Signs: Last Vital Signs Temp 98.0 F 08/21/20 08:45 Pulse 62 08/21/20 08:45 Resp 15 08/21/20 08:45 BP 109/67 08/21/20 08:45 Pulse Ox 96 08/21/20 08:45 Body Mass Index 19.2 Appearing in no acute distress head is normocephalic atraumatic eyes pupils are PERRLA sclera is anicteric mouth throat mucous membranes are intact and moist neck is supple no lymphadenopathy, no JVD noted lung sounds are clear to auscultation heart regular rate rhythm, clear S1, S2 positive bowel sounds, abdomen is soft, nontender neuro patient is alert x3, no focal deficits Results Labs CBC and Chem 7: 08/21/20 05:05 08/21/20 05:05 Labs: Laboratory Results - last 24 hr 08/21/20 08/21/20 08/21/20 05:05 05:05 05:05 MCV 87.0 MCH 28.9 MCHC 33.2 RDW 12.8 Plt Count 124 L MPV 9.8 Immature Gran % (Auto) 0.3 Neut % (Auto) 68.8 Lymph % (Auto) 19.6 L [place] % (Auto) 9.2 Eos % (Auto) 1.8 Baso % (Auto) 0.3 Lymph # (Auto) 2.3 [place] # (Auto) 1.1 Eos # (Auto) 0.2 Baso # (Auto) 0.0 Abs Immat Gran (auto) 0.04 H Absolute Neuts (auto) 8.1 Absolute Nucleated RBC 0.000 Nucleated RBC % (auto) 0.0 PT 14.2 H INR 1.2 H APTT 31.1 D-Dimer 964 Anion Gap 11 L Estim Creat Clear Calc 108.8 Estimated GFR > 60 Random Glucose 123 H D Calcium 8.8 Imaging Radiologist's Impressions: Impressions Chest X-Ray 08/21/20 04:44 IMPRESSION: Patchy airspace opacification in the lateral aspect of the right lung base associated volume loss. This may correspond atelectasis, though causes of consolidation such as pneumonia, aspiration, or contusion are also possible. Chest CTA 08/21/20 06:00 IMPRESSION: 1. A moderate volume of acute pulmonary emboli within the pulmonary arteries to the right lung and a probable small subsegmental pulmonary embolus in the left lower lobe. These are new as compared to the prior study from 07/23/2020. There is slight reflux of contrast material into the right hepatic veins, though no additional signs of elevated right heart pressure or right heart strain. 2. Airspace consolidation in the right lower lobe, potentially corresponding to a developing pulmonary infarct. This critical result was discussed by telephone with Dr. Couch on 08/21/2020 7:05 AM. VTE: positive Assessment and Plan (1) Pulmonary embolism and infarction: Status: Acute 25-year-old man with history of IV heroin abuse diagnosed with pulmonary embolus and DVT in July of 2020. Patient had been managed on Lovenox twice daily, he reports compliance but missed last night's dose. He reports he last used heroin approximately 1 week ago in his has not been injecting for some time. He presents with sharp chest pain with radiation to his right shoulder and mid back, chest CT showed increasing pulmonary embolus without much improvement and possible pulmonary infarction. Pulmonary embolus with infarction. New areas since last CTA. Reports compliance with Lovenox. - start IV heparin, stop Lovenox - pulmonary consultation for possible pulmonary infarction - hematology consultation - echocardiogram for question of heart strain - monitor for any signs of hypoxia Heroin abuse. Last use 1 week ago, currently smoking and no longer injecting. - continue methadone, QTC 397 DVT prophylaxis with IV heparin Attending: Dr. Rodriguez Full code
[2020-08-21 10:45] LABS: Troponin-I High Sensitivity < 3.5 ng/L (<3.5-35.0)
--- NOTE | 2020-08-21 11:46 | PC.NURSE ---
This rn called [facility] - unable to get ahold of anyone as it closed at 1130.
[2020-08-21] MEDS: Acetaminophen 325 MG TABLET 650 MG PO (12:05)
--- NOTE | 2020-08-21 12:05 | PM.EVENT ---
Event Note Date of Service: 08/21/20 Event Note: 25M presnted with chest pain. found to have worsening of his known PE, now with pulmonary infarction and RV strain. patient reports missing more than one dose due to bruising. unclear on how many he missed RI with pulmonary infarction and RV strain no hypoxia pain control iv heparin ? drug failure vs non compliance follow up hematology echo
[2020-08-21 12:18] LABS: COVID-19 Test Negative (Negative); IDNOW Serial# 9DD0AD1C
--- NOTE | 2020-08-21 12:45 | PC.NURSE ---
pharmacy called for methadone
[2020-08-21 15:17] LABS: PTT Heparin Drip 80.4 SEC (53-77.9)
[2020-08-21 16:29] LABS: Glucose Urine UA NEG (NEG); Leukocyte Esterase Urine NEG (NEG); Nitrite Urine NEG (NEG); Urine Blood NEG (NEG); Urine Ketones NEG (NEG); Urine Protein NEG (NEG-TRACE)
[2020-08-21 16:30] LABS: Appearance Urine CLEAR; Color Urine YELLOW
[2020-08-21 16:50] LABS: Amphetamine Screen Urine Not Detected (Not Detect); Barbiturates, Urine Not Detected (Not Detect); Benzodiazepines Screen Urine Not Detected (Not Detect); Cannabinoid Screen Urine POSITIVE (Not Detect); Cocaine Screen Urine Not Detected (Not Detect); Opiate Screen Urine POSITIVE (Not Detect); Phencyclidine Screen Urine Not Detected (Not Detect)
[2020-08-21] MEDS: oxyCODONE HCl Immed Release 5 MG TABLET PO ×2 (17:31→23:24)
--- NOTE | 2020-08-21 19:35 | PC.NURSE ---
X1 ATTEMPT TO GIVE REPORT- AWAITING CALLBACKL
[2020-08-21 22:21] LABS: PTT Heparin Drip 38.4 SEC (53-77.9)
[2020-08-21] MEDS: QUEtiapine Fumarate 100 MG TABLET PO (22:45)
[2020-08-21] MEDS: Heparin Sodium,Porcine 5,000 UNIT/ML VIAL 2600 UNIT IVPUSH (23:14)
[2020-08-22 03:03] VITALS: BP 124/86; PULSE 68; RESP 18; TEMP 37; O2SAT 97
[2020-08-22 06:13] LABS: MANUAL DIFF FLAG NO
[2020-08-22 06:24] LABS: Basophils Percent Auto 0.4 % (0-2); Eosinophils Absolute Auto 0.1 X10*3/uL (0.0-0.4); Eosinophils Percent Auto 0.5 % (0-4); Hematocrit 33.4 % (42-52); Hemoglobin 11.4 g/dl (14.0-18.0); Imm Gran Abs Auto 0.04 X10*3/uL (0.00-0.03); Imm Gran Pct Auto 0.4 % (0.0-0.4); Lymphocytes Absolute Auto 2.4 X10*3/uL (1.2-4.9); Lymphocytes Percent Auto 22.2 % (20-40); Mean Corpuscular HGB Conc 34.1 g/dl (31.0-36.0); Mean Corpuscular Hemoglobin 29.2 pg (27.0-33.0); Mean Corpuscular Volume 85.4 fL (80-98); Mean Platelet Volume 11.1 fL (9.4-12.4); Monocytes Percent Auto 9.1 % (2-11); Neutrophils Absolute Auto 7.4 X10*3/uL (2.0-8.3); Neutrophils Percent Auto 67.4 % (45-73); Platelet Count 156 X10*3/uL (160-400); Red Blood Count 3.91 X10*6/uL (4.60-5.80); Red Cell Distribution Width 12.3 % (11.0-16.0)
[2020-08-22 06:35] LABS: PTT Heparin Drip 57.8 SEC (53-77.9)
[2020-08-22 06:45] LABS: Anion Gap 14 (12-20); Blood Urea Nitrogen 11 mg/dL (9-16); Carbon Dioxide 28 mmol/L (22-29); Chloride 103 mmol/L (96-108); Creatinine Clr Calc Pharmacy 121.8; Estimated Glomerular Filt Rate > 60; Glucose Random 104 mg/dL (60-115); Potassium 4.1 mmol/L (3.3-5.1); Sodium 141 mmol/L (135-145)
[2020-08-22 07:35] VITALS: BP 112/70; PULSE 68; RESP 18; TEMP 37.4; O2SAT 98
--- NOTE | 2020-08-22 08:05 | HO.PM.IMPN ---
Subjective Subjective Date of Service: 08/22/20 <Cassandra Mustafa NP - Last Filed: 08/22/20 13:47> 08/22/20 <Shoaib Montoya MD - Last Filed: 08/22/20 13:52> Interval History: Follow up pulmonary embolus, feeling better shoulder pain improving. <Cassandra Mustafa NP - Last Filed: 08/22/20 13:47> Physical Exam Vital Signs: Vital Signs: Last Vital Signs Temp 99.4 F 08/22/20 07:35 Pulse 68 08/22/20 07:35 Resp 18 08/22/20 07:35 BP 112/70 08/22/20 07:35 Pulse Ox 98 08/22/20 07:35 Body Mass Index 21.2 <Cassandra Mustafa NP - Last Filed: 08/22/20 13:47> Appearing in no acute distress lung sounds are clear to auscultation heart regular rate rhythm, clear S1, S2 positive bowel sounds, abdomen is soft, nontender neuro patient is alert x3, no focal deficits <Cassandra Mustafa NP - Last Filed: 08/22/20 13:47> Objective Data Current Medications Generic Name Dose Route Start Last Admin Trade Name Freq PRN Reason Stop Dose Admin Acetaminophen 650 mg 08/21/20 10:11 08/21/20 12:05 Acetaminophen 325 Mg Tablet PO 650 mg Q6H PRN Administration Pain, Mild (Pain Scale 1-3) Heparin Sodium (Porcine) 5,200 unit 08/21/20 23:02 Heparin Sodium,Porcine 5,000 Unit/Ml Vial 80 unit/kg (5200 unit) IVPUSH BOLUS PRN 80 unit/kg - Heparin Protocol Protocol Heparin Sodium (Porcine) 2,600 unit 08/21/20 23:05 08/21/20 23:14 Heparin Sodium,Porcine 5,000 Unit/Ml Vial 40 unit/kg (2600 unit) 2,600 unit IVPUSH Administration BOLUS PRN 40 unit/kg - Heparin Protocol Protocol Heparin Sodium/Sodium Chloride 25,000 unit in 250 mls @ 0 mls/hr 08/21/20 07:30 08/21/20 23:16 IVCONT 14 units/kg/hr .Q0M ORLIN 8.26 mls/hr Titration Protocol Per Protocol Ondansetron HCl 4 mg 08/21/20 10:11 Ondansetron Hcl 4 Mg/2 Ml Vial IVPUSH Q8H PRN Nausea and Vomiting Oxycodone HCl 5 mg 08/21/20 17:04 08/21/20 23:24 Oxycodone Hcl Immed Release 5 Mg Tablet PO 5 mg Q6H PRN Administration Pain, Mild (Pain Scale 1-3) Quetiapine Fumarate 100 mg 08/21/20 10:11 08/21/20 22:45 Quetiapine Fumarate 100 Mg Tablet PO 100 mg BEDTIME PRN Administration insomnia Sodium Chloride 3 ml 08/21/20 16:00 08/21/20 22:45 0.9 % Sodium Chloride Flush 3 Ml Syringe IVFLUSH Not Given QSHIFT ORLIN <Cassandra Mustafa NP - Last Filed: 08/22/20 13:47> Labs CBC & Chem 7: : 08/22/20 05:40 08/22/20 05:40 <Cassandra Mustafa NP - Last Filed: 08/22/20 13:47> Assessment and Plan (1) Pulmonary embolism and infarction: Status: Acute <Cassandra Mustafa NP - Last Filed: 08/22/20 13:47> Assessment and Plan: 25-year-old man with history of IV heroin abuse diagnosed with pulmonary embolus and DVT in July of 2020. Patient had been managed on Lovenox twice daily, he reports compliance but missed last night's dose. He reports he last used heroin approximately 1 week ago in his has not been injecting for some time. He presents with sharp chest pain with radiation to his right shoulder and mid back, chest CT showed increasing pulmonary embolus without much improvement and possible pulmonary infarction. Pulmonary embolus with infarction. New areas since last CTA. Reports compliance with Lovenox, but did miss some doses - start IV heparin, stop Lovenox. Continue heparin for 24 more hours, then transition to Eliquis. - pulmonary consultation for possible pulmonary infarction - hematology following - echocardiogram - monitor for any signs of hypoxia Heroin abuse. Last use 1 week ago, currently smoking and no longer injecting. - continue methadone, QTC 397 Attending: <Cassandra Mustafa NP - Last Filed: 08/22/20 13:47> Pt seen and examined. Case d/w Xander Mustafa NP Agree with her documentation. 25 yo non-compliant male (missed several days of lovenox at home after initially reporting that he did not miss any doses) admitted for worsening PE / pulmonary infarcts IV heparin gtt x 24 hours. Then NOAC. Echo today. <Shoaib Montoya MD - Last Filed: 08/22/20 13:52>
[2020-08-22] MEDS: Acetaminophen 325 MG TABLET 650 MG PO ×2 (08:53→21:49)
--- NOTE | 2020-08-22 10:11 | CA_ITS ---
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 heart strain from PE Study Quality: Good ECG Rhythm: Sinus Conclusions: - The left ventricular systolic function is normal. The visually estimated ejection fraction is between 60-65%. - No obvious valvular pathology seen on this study. Findings Left Ventricle Normal left ventricular cavity size. There is normal left ventricular wall thickness. The left ventricular systolic function is normal. The visually estimated ejection fraction is between 60-65%. There is no evidence of regional wall motion abnormalities. Diastolic function is normal for age. Right Ventricle Normal right ventricular cavity size and systolic function. Atria Both atria are normal in size. Aortic Valve There is a normal trileaflet aortic valve. There is no aortic valve stenosis. There is no aortic valve regurgitation. Mitral Valve The mitral valve appears normal. There is trace mitral valve regurgitation. There is no mitral valve stenosis. Pulmonic Valve The pulmonic valve was not well visualized. Tricuspid Valve Normal tricuspid valve structure. There is trace tricuspid valve regurgitation. The pulmonary artery systolic pressure is normal. Great Vessels The aortic annulus, sinuses of valsalva, and asc aorta are normal in size. Venous The inferior vena cava is normal in size and collapses greater than 50% with inspiration. Pericardium/Pleural There is no evidence of pericardial effusion. Prior Study Comparison No prior study available for comparison. Recommendations, Care & Conclusions No obvious valvular pathology seen on this study. Measurements 2D Linear Measurements IVSd: 0.90 0.6-0.9/0.6-1.0 cm LVIDd: 4.79 3.9-5.3/4.2-5.9 cm LVIDd Index: 2.68 2.4-3.2/2.2-3.1 cm/m2 LVIDs: 3.03 2.0-3.6 cm LVPWd: 0.81 0.7-1.1 cm Ao Root: 2.80 2.1-3.5 cm LA Diam: 3.50 2.7-3.8/3.0-4.0 cm LAIDs Index: 1.96 1.5-2.3 cm/m2 LV Mass: 171.44 67-162/88-224 g LV Mass Index: 95.78 43-95/49-115 g/m2 LVOT Diam: 2.20 3.0+(-)1.3 cm Mitral Valve MV Pk E: 0.86 MV PK A: 0.62 MV Decel Time: 151.00 E/A: 1.40 E'Lateral: 14.90 E'Medial: 14.50 E/E' Med: 6.00 E/E' Lat: 5.80 PHT: 44.00 MVA PHT: 5.00 Decel [place]: 5.70 Aortic Valve AoV Pk Jayson: 1.22 AoV Mn Jayson: 0.83 AoV VTI: 0.26 AoV Pk Grad: 6.00 Aov Mn Grad: 3.00 RAUL Cont.VTI: 2.93 LVOT LVOT Pk Jayson: 1.00 LVOT Mn Jayson: 0.63 LVOT VTI: 0.20 LVOT Pk Grad: 4.00 LVOT Mn Grad: 2.00 LVOT Diam: 2.20 LVOT Area: 3.80 Diastolic Function MV Pk E: 0.86 MV Pk A: 0.62 E/A: 1.40 E'Medial: 14.50 E/E' Med: 6.00 E' Laterial: 14.90 E/E' Lat: 5.80 Tricuspid Valve TR Pk Jayson: 2.22 TR Pk Grad: 20.00 RA Press: 3.00 RVSP: 23.00 Great Vessels Aorta Ao Root-2D: 2.80 2.0-3.7 cm Ao Asc: 2.80 2.1-3.4 cm Pulmonary Valve PV Pk Jayson: 0.96 Peak PV Grad: 4.00 Updated in Other Vendor System with Status of Final Zaid Poon MD electronically signed on 08/22/2020 5:08:53 PM with status of Final
--- NOTE | 2020-08-22 10:20 | MHC.CM.PN ---
dc plan home with resumption of health care [facility] where he gets his methadone pt reports he has own transportaion home
--- NOTE | 2020-08-22 11:33 | CONS_ITS ---
DATE OF SERVICE: 08/22/2020 CHIEF COMPLAINT: Chest pain. HISTORY OF PRESENT ILLNESS: Mr. Lawrence is a 25-year-old gentleman with a known history of substance abuse, who had been evaluated back in July 2020 with chest pain and also leg swelling, diagnosed with DVT and PE at that time. He was evaluated and treated with Lovenox and was going to subsequently segue into [facility]. However, the patient was not compliant with medication. He did go to rehab and he had been on methadone, but unfortunately, he was still using drugs. He started developing severe right-sided chest discomfort. He could not tolerate the symptoms any longer, decided to coming back to the ER for further evaluation. His D-dimer is significantly elevated. He did have a repeat CTA now with extensive blood clots moderate amount. The patient was placed on heparin drip and admitted to the floor. While on the floor, the patient was found to be carrying a syringe and also some white powder, which thought to be drugs, most likely using drugs in the hospital. The patient now understands that he has a life-threatening condition, especially if he does not use the anticoagulation, the patient's compliance will be the biggest brian in getting him better. REVIEW OF SYSTEMS: Ten systems reviewed. 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 Denies any HEENT symptoms. Complains of the respiratory and cardiac symptoms as stated above. Denied any GI symptoms. Denies any symptoms. Complains of bruising might primarily from the Lovenox shots, he states he did not like them. Denies any joint pains, swelling, or rashes. The rest of the 10-organ system is negative. PAST MEDICAL HISTORY: DVT, PE. At this point, with IV drug use, he potentially could result in some superficial phlebitis and subsequent blood clots from that. Knee fusion and also left leg DVT. He is not aware of any injuries or trauma to the leg or surgeries. FAMILY HISTORY: No history of blood clots in the family. Positive for ALS and lung cancer and diabetes. PAST SURGICAL HISTORY: Knee surgery. SOCIAL HISTORY: Active smoker and also substance abuse, crack and cocaine, marijuana both IV and inhaled. ALLERGIES: PLEASE REFER TO THE MAR FOR THE FULL LIST. NO KNOWN DRUG ALLERGIES. MEDICATIONS: Please refer to the MAR for the full list. Currently, he is on heparin drip. PHYSICAL EXAMINATION: VITAL SIGNS: Stable. Saturating 98% on room air. GENERAL: Pleasant gentleman, in no acute distress. HEENT: Pupils equal and reactive to light. Oropharynx clear. NECK: Supple. CARDIAC: Regular rhythm, regular rate. No extra heart sounds. LUNGS: Diminished bilaterally. ABDOMEN: Positive bowel sounds. Soft. EXTREMITIES: No clubbing or cyanosis. LABORATORY DATA: His white count is 11, hemoglobin 11.4, platelet count is 156. Serology testing negative for COVID. Does not look like he has had an HIV test recently. Tox screen positive for both opiates and marijuana. The chemistries, his troponin I normal and homocysteine level cannot be done. ASSESSMENT: Mr. Lawrence is a 25-year-old gentleman with a known history of IV drug use, presenting with worsening propagation of thromboembolic disease. 1. Pulmonary emboli, worsening due to the fact that he had been non-adherent to his therapy, now with moderate clot burden. No evidence of any RV strain at this point. He will have an echocardiogram to make sure. 2. Pulmonary infarct. 3. Substance abuse. RECOMMENDATIONS: At this point, the patient has significant disease. Would need heparin drip. Should transition over to longer-acting anticoagulation such as Xarelto or Eliquis, whichever will provide better adherence to therapy. My concern is that even on anticoagulation even if we make it as easy as possible for him to use, his compliance may still be low, so therefore, we will recommend lower extremity Dopplers to be done again. If he has clot burden, we have to further talk about the benefits of putting an IVC filter in him due to the fact that his compliance may not be consistent. Continue assessing him for help for his substance abuse and withdrawal symptoms. The patient right now is in room air. We will have to do a 6-minute walk test discharge and also have the echocardiogram which is pending. Further recommendation based on forthcoming data. MD CELIO Price/SHANEL / [id number]
[2020-08-22 11:54] LABS: INTERNATIONAL NORM RATIO 1.3 (0.9-1.1); Prothrombin Time 15.8 SEC (10.8-13.0)
[2020-08-22 11:57] VITALS: BP 123/73; PULSE 64; RESP 17; TEMP 36.9; O2SAT 99
[2020-08-22 11:57] LABS: PTT Heparin Drip 54.2 SEC (53-77.9)
--- NOTE | 2020-08-22 12:10 | PM.HEMONCCN ---
Subjective - Subjective Chief complaint: Right chest and neck pain Patient: known to practice within the last 3 years Consult date: 08/22/20 Primary Care Provider: Lisa Ortiz NP HPI - Consult Narrative Reason for consult: Worsening pulmonary embolism Narrative: Fritz Lawrence is a 25 year old male who was diagnosed with left lower extremity DVT and bilateral subsegmental pulmonary emboli in July 2020. He had extensive left lower extremity clot and was recommended admission for thrombolysis. He refused admission, he was treated with Lovenox as outpatient. He is pain in the left leg seemed to get better however, he presented yesterday with severe pain in his right neck area and chest. He admits to missing 1 or 2 doses of Lovenox but generally has been compliant. He denied IV drug abuse with me but as per chart review, he appears to have used drugs a week ago. He also has a history of left upper extremity DVT when he was actively using IV drugs. Since admission his pain is much better, he has been on IV heparin. He is still requiring narcotic pain medication. Review of Systems - Constitutional Reports as per HPI, Denies chills, Denies fever(s) - Cardiovascular Denies chest pain with activity - Respiratory Denies cough, Reports pain on inspiration, Denies dyspnea - Gastrointestinal Reports no additional gastrointestinal complaints PMFSH Medical History: Medical History (Last Reviewed 08/21/20 @ 22:09 by Lisseth Riley RN) Bilateral pulmonary embolism Drug addiction in remission Knee effusion Left leg DVT Family History: Family History (Last Reviewed 08/21/20 @ 22:09 by Lisseth Riley RN) Mother ALS (amyotrophic lateral sclerosis) Maternal Grandfather Lung cancer Paternal Grandmother Lung cancer Maternal Grandmother Diabetes Sister Asthma Surgical History: Surgical History (Last Reviewed 08/21/20 @ 22:09 by Lisseth Riley RN) Hx of knee surgery Social History: Social History (Last Updated 07/26/20 @ 11:08 by Ana Franks) Living Situation History: Household Members: Family Household Members Other:: mother, stepdad, girlfriend Housing: House Do you presently have visiting nurse or other home services: No Alcohol History: Alcohol intake: never Alcohol History Details: Alcohol intake frequency: does not drink Tobacco History: Smoking Status: Current every day smoker Tobacco Type: Cigarette Packs Per Day: 0.5 Substance Use History: Use of substances other than those prescribed or required for medical reasons: No Substance Use Type: Crack/Cocaine Substance Use Type: IV Drugs Substance Use Type: Marijuana Currently Displaying Signs/Symptoms of Drug Intoxication Withdrawal: No Other Past Substance Use Problem:: dope now on methadone, tox screen positive Domestic Abuse History: Have you been hit, kicked, punched, or otherwise hurt by someone within the past year? If so, by whom?: No Do you feel safe in your current relationship?: Yes Is there a partner from a previous relationship who is making you feel unsafe now?: No Are you made to feel afraid or neglected: No Advance Directives: Advance Directives: No Advance Directives Information Provided: No Homicidal Assessment: Do you have thoughts of harming others: None Do you have a plan to hurt others: No Plan Nutrition Assessment: Recently lost weight without trying: Yes How much weight loss: 2-13 pounds Eating poorly because of decreased appetite: Yes Nutrition screen score: 4 Poor oral hygiene: No Occupation Assessmet: service: No Smoking status: Current every day smoker Home Medications and Allergies Current Medications: Current Medications Generic Name Dose Route Start Last Admin Trade Name Freq PRN Reason Stop Dose Admin Acetaminophen 650 mg 08/21/20 10:11 08/22/20 08:53 Acetaminophen 325 Mg Tablet PO 650 mg Q6H PRN Administration Pain, Mild (Pain Scale 1-3) Heparin Sodium (Porcine) 5,200 unit 08/21/20 23:02 Heparin Sodium,Porcine 5,000 Unit/Ml Vial 80 unit/kg (5200 unit) IVPUSH BOLUS PRN 80 unit/kg - Heparin Protocol Protocol Heparin Sodium (Porcine) 2,600 unit 08/21/20 23:05 08/21/20 23:14 Heparin Sodium,Porcine 5,000 Unit/Ml Vial 40 unit/kg (2600 unit) 2,600 unit IVPUSH Administration BOLUS PRN 40 unit/kg - Heparin Protocol Protocol Heparin Sodium/Sodium Chloride 25,000 unit in 250 mls @ 0 mls/hr 08/21/20 07:30 08/21/20 23:16 IVCONT 14 units/kg/hr .Q0M ORLIN 8.26 mls/hr Titration Protocol Per Protocol Methadone HCl 30 mg 08/22/20 10:30 08/22/20 12:02 Methadone Hcl 1 Mg/0.1 Ml Oral.Conc PO 30 mg DAILY ORLIN Administration Ondansetron HCl 4 mg 08/21/20 10:11 Ondansetron Hcl 4 Mg/2 Ml Vial IVPUSH Q8H PRN Nausea and Vomiting Oxycodone HCl 5 mg 08/21/20 17:04 08/21/20 23:24 Oxycodone Hcl Immed Release 5 Mg Tablet PO 5 mg Q6H PRN Administration Pain, Mild (Pain Scale 1-3) Quetiapine Fumarate 100 mg 08/21/20 10:11 08/21/20 22:45 Quetiapine Fumarate 100 Mg Tablet PO 100 mg BEDTIME PRN Administration insomnia Sodium Chloride 3 ml 08/21/20 16:00 08/22/20 08:41 0.9 % Sodium Chloride Flush 3 Ml Syringe IVFLUSH Not Given QSHIFT COUNTS INCLUDE 234 BEDS AT THE [facility] Home Medications Medication Instructions Recorded Confirmed Type methadone 35 mg PO DAILY 07/26/20 08/21/20 History quetiapine 1 tab PO BEDTIME PRN 07/26/20 08/21/20 History Allergies Allergy/AdvReac Type Severity Reaction Status Date / Time No Known Allergies Allergy Verified 07/23/20 22:54 Physical Exam Vital signs: Vital Signs Temp 98.4 F 08/22/20 11:57 Pulse 64 08/22/20 11:57 Resp 17 08/22/20 11:57 BP 123/73 08/22/20 11:57 Pulse Ox 99 08/22/20 11:57 Intake & Output 08/21/20 08/22/20 08/22/20 18:59 06:59 18:59 Intake Total 55.204 / 587.950 532.746 / 587.950 Output Total 1625 / 1625 Balance 55.204 / -1037.050 -1092.254 / -1037.050 Urine Output (Average ml/kg/hr) 2.08 Intake: Intake, Oral Amount 480 / 480 Intake, IV Amount 55.204 / 107.950 52.746 / 107.950 Heparin Sodium,Porcine/1/2NS 25 55.204 / 107.950 52.746 / 107.950 ,000 unit In 250 ml @ Per Protocol IVCONT .Q0M COUNTS INCLUDE 234 BEDS AT THE [facility] Rx#: [id number] Output: Output, Urine Amount 1625 / 1625 Other: Urine Urinal Urine Color Yellow Weight 65.2 kg Weight in Grams [id number] Weight 65.2 kg - Constitutional Present: no acute distress - Routine HEENT Exam Head: Present: normal inspection Eye: Present: EOMI - Routine Neck Exam Absent: lymphadenopathy - Routine Respiratory Exam Present: CTAB. Absent: accessory muscle use - Routine Cardiovascular Exam Cardiovascular: Present: S1, S2 Hem/Onc Consult Result - Labs CBC & Chem 7: 08/23/20 06:00 08/23/20 06:00 Labs: Short CBC 08/22/20 Range/Units 05:40 WBC 11.0 H (4.8-10.8) X10*3/uL Hgb 11.4 L (14.0-18.0) g/dl Hct 33.4 L (42-52) % Plt Count 156 L D (160-400) X10*3/uL BMP 08/22/20 05:40 Sodium 141 Potassium 4.1 Chloride 103 Carbon Dioxide 28 BUN 11 Creatinine 0.84 Calcium 9.0 Urine 08/21/20 Range/Units 16:21 Urine Color YELLOW Urine Appearance CLEAR Urine pH 7.0 (5.0-8.0) Ur Specific [place] 1.010 (1.005-1.025) Urine Protein NEG (NEG-TRACE) MG/DL Urine Glucose (UA) NEG (NEG) MG/DL - Imaging CT PE Radiologist's impression: ITS Impressions Chest X-Ray 08/21/20 04:44 IMPRESSION: Patchy airspace opacification in the lateral aspect of the right lung base associated volume loss. This may correspond atelectasis, though causes of consolidation such as pneumonia, aspiration, or contusion are also possible. Chest CTA 08/21/20 06:00 IMPRESSION: 1. A moderate volume of acute pulmonary emboli within the pulmonary arteries to the right lung and a probable small subsegmental pulmonary embolus in the left lower lobe. These are new as compared to the prior study from 07/23/2020. There is slight reflux of contrast material into the right hepatic veins, though no additional signs of elevated right heart pressure or right heart strain. 2. Airspace consolidation in the right lower lobe, potentially corresponding to a developing pulmonary infarct. This critical result was discussed by telephone with Dr. Couch on 08/21/2020 7:05 AM. VTE: positive Assessment and Plan (1) Pulmonary embolism and infarction Status: Acute 1. This is a 25-year-old male with spontaneous left lower extremity DVT and bilateral pulmonary embolism initially diagnosed in July 2020. He has been on Lovenox 1 mg/kg b.i.d., he now presents with worsening pulmonary embolism specially in the right lung with evidence of right heart strain. Echocardiogram is pending. Previous history of left upper extremity DVT when he was using IV drugs. Although he denied to me, he appears to be using IV drugs intermittently and this worsening of thromboembolism may be as a result of IV drug abuse and noncompliance with Lovenox. Thrombophilia workup was negative. Continue with IV heparin, he is doing better symptomatically. As his oxygenation improves, he can be transitioned to Eliquis b.i.d. which he has been prescribed but did not start yet. Consider upper extremity Dopplers if he is using IV drugs. Thank you for the consult, will follow with you.
[2020-08-22 15:10] VITALS: BP 122/77; PULSE 66; RESP 16; TEMP 37.1; O2SAT 99
[2020-08-22] MEDS: oxyCODONE HCl Immed Release 5 MG TABLET PO (15:28)
[2020-08-22] MEDS: Heparin Sodium,Porcine/1/2NS 25,000 UNIT/250 ML IV.SOLN 8.26 UNIT IVCONT (16:28)
[2020-08-22 16:37] VITALS: BMI 19.2
[2020-08-22 19:19] VITALS: BP 114/60; PULSE 50; RESP 18; TEMP 37.6; O2SAT 98
[2020-08-22] MEDS: QUEtiapine Fumarate 100 MG TABLET PO (21:50)
[2020-08-22 23:34] VITALS: BP 118/75; PULSE 63; RESP 18; TEMP 37.4; O2SAT 97
[2020-08-23 03:14] VITALS: BP 108/63; PULSE 56; RESP 18; TEMP 36.6; O2SAT 96
[2020-08-23] MEDS: oxyCODONE HCl Immed Release 5 MG TABLET PO (03:27)
[2020-08-23 06:42] LABS: MANUAL DIFF FLAG NO
[2020-08-23 06:47] LABS: Basophils Percent Auto 0.3 % (0-2); Eosinophils Absolute Auto 0.2 X10*3/uL (0.0-0.4); Eosinophils Percent Auto 1.8 % (0-4); Hematocrit 34.8 % (42-52); Hemoglobin 11.8 g/dl (14.0-18.0); Imm Gran Abs Auto 0.03 X10*3/uL (0.00-0.03); Imm Gran Pct Auto 0.3 % (0.0-0.4); Lymphocytes Absolute Auto 2.7 X10*3/uL (1.2-4.9); Mean Corpuscular HGB Conc 33.9 g/dl (31.0-36.0); Mean Corpuscular Hemoglobin 28.9 pg (27.0-33.0); Mean Corpuscular Volume 85.3 fL (80-98); Mean Platelet Volume 10.3 fL (9.4-12.4); Neutrophils Absolute Auto 5.8 X10*3/uL (2.0-8.3); Neutrophils Percent Auto 59.6 % (45-73); Platelet Count 190 X10*3/uL (160-400); Red Blood Count 4.08 X10*6/uL (4.60-5.80); Red Cell Distribution Width 12.6 % (11.0-16.0); White Blood Count 9.7 X10*3/uL (4.8-10.8)
[2020-08-23 06:56] LABS: PTT Heparin Drip 58.7 SEC (53-77.9)
[2020-08-23 07:11] LABS: Alanine Aminotransferase 15 U/L (0-40); Alkaline Phosphatase 56 U/L (39-117); Anion Gap 16 (12-20); Aspartate Amino Transferase 14 U/L (5-37); Bilirubin Direct 0.2 mg/dL (0.0-0.5); Bilirubin Total 0.5 mg/dL (0.0-1.0); Blood Urea Nitrogen 14 mg/dL (9-16); Carbon Dioxide 25 mmol/L (22-29); Chloride 104 mmol/L (96-108); Creatinine Clr Calc Pharmacy 114.2; Estimated Glomerular Filt Rate > 60; Glucose Random 84 mg/dL (60-115); Potassium 4.3 mmol/L (3.3-5.1); Sodium 141 mmol/L (135-145); Total Protein 7.2 g/dL (6.5-8.0)
[2020-08-23 07:37] VITALS: BP 118/66; PULSE 62; RESP 19; TEMP 37.6; O2SAT 99
[2020-08-23] MEDS: Apixaban 5 MG TABLET PO (08:34)
[2020-08-23] MEDS: 0.9 % Sodium Chloride Flush 3 ML SYRINGE IVFLUSH (08:35)
[2020-08-23 11:25] VITALS: BP 117/80; PULSE 56; RESP 19; TEMP 36.9; O2SAT 99
--- NOTE | 2020-08-23 11:54 | P.DS_ITS ---
DS: Providers Provider Date of Service: 08/23/20 <Cassandra Mustafa NP - Last Filed: 08/23/20 17:54> 08/24/20 <Shoaib Montoya MD - Last Filed: 08/24/20 09:11> Date of admission: 08/21/20 10:11 <Cassandra Mustafa NP - Last Filed: 08/23/20 17:54> Date of discharge: 08/23/20 <Cassandra Mustafa NP - Last Filed: 08/23/20 17:54> Primary care physician: Lisa Ortiz NP <Cassandra Mustafa NP - Last Filed: 08/23/20 17:54> Admitting clinician: Cassandra Mustafa <Cassandra Mustafa NP - Last Filed: 08/23/20 17:54> Attending physician on admission: Kaiden Rodriguez <Cassandra Mustafa NP - Last Filed: 08/23/20 17:54> Consults: 08/21/20 10:11 Consult to Hematology / Oncology Routine Consulting Provider: Lucy Panchal Reason for consultation: PE, worsening on lovenox BID Has provider been notified: No Consult to Pulmonology Routine Consulting Provider: Jae Cobb Reason for consultation: PE, ? pulmonary infarction Has provider been notified: No <Cassandra Mustafa NP - Last Filed: 08/23/20 17:54> Attending physician on discharge: Shoaib Montoya <Cassandra Mustafa NP - Last Filed: 08/23/20 17:54> Discharging clinician: Cassandra Mustafa <Cassandra Mustafa NP - Last Filed: 08/23/20 17:54> DS: Diagnosis Discharge Diagnosis (1) Pulmonary embolism and infarction: Status: Acute <Cassandra Mustafa NP - Last Filed: 08/23/20 17:54> DS: Medications Discharge Medications Home Medications: Home Medications Medication Instructions Recorded Confirmed methadone 35 mg PO DAILY 07/26/20 08/21/20 quetiapine 1 tab PO BEDTIME PRN 07/26/20 08/21/20 Previous Rx's Medication Instructions Recorded apixaban [Eliquis] 5 mg PO BID #70 tab 08/23/20 <Cassandra Mustafa NP - Last Filed: 08/23/20 17:54> DS: Summary Hospital Course Hospital Course: HP as per admitting provider 25-year-old man presenting to the ER with complaints of right-sided sharp chest pain with inspiration with radiation to his upper back on the right side. Patient was diagnosed with DVT in PE in July of 2020. He was placed on Lovenox with intention to transition to Eliquis. He states compliance with his Lovenox but states he did not take it last night. He does have a history of heroin abuse and reported that he last use approximately 1 week ago. He had been using much heavier but went to rehab and is currently on methadone. In terms of his blood clots he was initially diagnosed 3 months ago with right upper extremity DVT and reported that at that time he had been shooting up heroin. In the ER, chest CT showed moderate volume of acute pulmonary emboli within the pulmonary arteries to the right lung and probable small cell segmental pulmonary embolus in the left lower lobe, new compared to prior study on 07/23/2020. Possible pulmonary infarction also seen. D-dimer remains elevated 964 however down from 2561 on August 16. His vital signs are stable, is not noted to be hypoxic. He was started on IV heparin drip. He will be admitted for further management and treatment of worsening PE . Pulmonary embolism. Diagnosed with DVT and PEin July 2020 and placed on Lovenox. Apparently patient has missed some doses of Lovenox because of the bruising and pain with injection. He presented to the ER with shortness of breath and shoulder pain. Thrombophilia workup was negative during last follow- up. He had echocardiogram which was normal and did not show any heart strain. He was treated with IV heparin for 48 hours. Seen and examined by pulmonology and Hematology who he sees as outpatient. He was transition to Eliquis. He will take 10 mg twice a day for 7 days and then transition. Patient safe to transition home at this point. Heroin abuse. Encouraged to stop using heroin especially injectable heroin as this is the likely cause for his DVT initially. Continue Methadone. Attending. Dr. Montoya ATTENDING ATTESTATION: Patient seen and examined independently and was present during manrique portion of E/M service. Agree with Xander Mustafa NP''s history, physical, assessment, and plan. Pt improved after 48 hours of IV heparin gtt. Right heart strain seen on initial CT was not evident on Echo. He was on RA and ambulating without any tachycardia or hypoxia. Was Transitioned to oral Eliquis -- he was able to verbally report back to me the dosing (10mg BID x 7 days, followed by 5mg BID thereafter). He was educated on the necessity of this medication and that even missing 1 dose of Eliquis could be deadly. LE doppler completed, showing decreased clot burden and IVC filter not indicated. 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 This was stressed to him multiple times at the time of discharge. <Cassandra Mustafa NP - Last Filed: 08/23/20 17:54> Time Spent with Patient Time attestation: Total time spent providing and/or coordinating discharge services: <Cassandra Mustafa NP - Last Filed: 08/23/20 17:54> Discharge coordination time: Greater than 30 minutes <Cassandra Mustafa NP - Last Filed: 08/23/20 17:54> Physical Exam Vital Signs: Vital Signs: Last Vital Signs Temp 98.5 F 08/23/20 11:25 Pulse 56 08/23/20 11:25 Resp 19 08/23/20 11:25 BP 117/80 08/23/20 11:25 Pulse Ox 99 08/23/20 11:25 Body Mass Index 19.2 <Cassandra Mustafa NP - Last Filed: 08/23/20 17:54> Appearing in no acute distress head is normocephalic atraumatic eyes pupils are PERRLA sclera is anicteric mouth throat mucous membranes are intact and moist neck is supple no lymphadenopathy, no JVD noted lung sounds are clear to auscultation heart regular rate rhythm, clear S1, S2 positive bowel sounds, abdomen is soft, nontender neuro patient is alert x3, no focal deficits <Cassandra Mustafa NP - Last Filed: 08/23/20 17:54> DS: Data Data Completed and Pending Labs on day of discharge: Laboratory Results - last 24 hr 08/22/20 08/22/20 08/23/20 11:39 11:39 06:00 WBC RBC Hgb Hct MCV MCH MCHC RDW Plt Count MPV Immature Gran % (Auto) Neut % (Auto) Lymph % (Auto) [place] % (Auto) Eos % (Auto) Baso % (Auto) Lymph # (Auto) [place] # (Auto) Eos # (Auto) Baso # (Auto) Abs Immat Gran (auto) Absolute Neuts (auto) Absolute Nucleated RBC Nucleated RBC % (auto) PT 15.8 H INR 1.3 H PTT (Heparin Protocol) 54.2 58.7 Sodium Potassium Chloride Carbon Dioxide Anion Gap BUN Creatinine Estim Creat Clear Calc Estimated GFR Random Glucose Calcium Total Bilirubin Direct Bilirubin AST ALT Alkaline Phosphatase Total Protein Albumin 08/23/20 08/23/20 06:00 06:00 WBC 9.7 RBC 4.08 L Hgb 11.8 L Hct 34.8 L MCV 85.3 MCH 28.9 MCHC 33.9 RDW 12.6 Plt Count 190 MPV 10.3 Immature Gran % (Auto) 0.3 Neut % (Auto) 59.6 Lymph % (Auto) 28.0 [place] % (Auto) 10.0 Eos % (Auto) 1.8 Baso % (Auto) 0.3 Lymph # (Auto) 2.7 [place] # (Auto) 1.0 Eos # (Auto) 0.2 Baso # (Auto) 0.0 Abs Immat Gran (auto) 0.03 Absolute Neuts (auto) 5.8 Absolute Nucleated RBC 0.000 Nucleated RBC % (auto) 0.0 PT INR PTT (Heparin Protocol) Sodium 141 Potassium 4.3 Chloride 104 Carbon Dioxide 25 Anion Gap 16 BUN 14 Creatinine 0.81 Estim Creat Clear Calc 114.2 Estimated GFR > 60 Random Glucose 84 Calcium 9.0 Total Bilirubin 0.5 Direct Bilirubin 0.2 AST 14 ALT 15 Alkaline Phosphatase 56 Total Protein 7.2 Albumin 4.0 <Cassandra Mustafa NP - Last Filed: 08/23/20 17:54> Discharge Plan Discharge Anticipated Discharge Date/Time: 08/23/20 11:40 <Cassandra Mustafa NP - Last Filed: 08/23/20 17:54> Patient Disposition: Home, Self-Care <Cassandra Mustafa NP - Last Filed: 08/23/20 17:54> Referrals: Lisa Ortiz NP [Primary Care Provider] - 1 Week (TELE 09/01/2020 2:30PM. Lisa Ortiz will call you to discuss your hospital stay.) <Cassandra Mustafa NP - Last Filed: 08/23/20 17:54> Discharge Medications: New Eliquis 5 mg tablet 5 mg PO BID Qty: 70 RF: 0 Continued quetiapine 100 mg tablet 1 tab PO BEDTIME PRN (Reason: insomnia) RF: 0 methadone 40 mg Tablet,Soluble 35 mg PO DAILY RF: 0 Discontinued enoxaparin [Lovenox] 60 mg/0.6 mL Syringe 60 mg SUBCUT Q12H Qty: 30 RF: 0 (DME) pair of crutches Kit Qty: 1 RF: 0 <Cassandra Mustafa NP - Last Filed: 08/23/20 17:54> Discharge Orders: Discharge Order (Routine); Ordered 08/23/20 Ordered By: Cassandra Mustafa <Cassandra Mustafa NP - Last Filed: 08/23/20 17:54> Diet: advance to usual diet <Cassandra Mustafa NP - Last Filed: 08/23/20 17:54> advance to usual diet <Shoaib Montoya MD - Last Filed: 08/24/20 09:11> Activity on Discharge: As tolerated <Cassandra Mustafa NP - Last Filed: 08/23/20 17:54> As tolerated <Shoaib Montoya MD - Last Filed: 08/24/20 09:11> Stand Alone Forms: Patient Portal Discharge page <Cassandra Mustafa NP - Last Filed: 08/23/20 17:54> Care Plan Goals: resolution of pulmonary embolus with medication compliance <Cassandra Mustafa NP - Last Filed: 08/23/20 17:54> Health Concerns: Pulmonary embolus Substance abuse <Cassandra Mustafa NP - Last Filed: 08/23/20 17:54> Plan of Treatment: Follow-up with hematology, Dr. Panchal Follow-up with pulmonology, Dr. Mustafa Take 10 mg twice daily for 7 days of Eliquis then transition to 5 mg twice daily thereafter Follow-up with primary care provider as needed <Cassandra Mustafa NP - Last Filed: 08/23/20 17:54> Discharge Date/Time: 08/23/20 15:40 <Cassandra Mustafa NP - Last Filed: 08/23/20 17:54>
--- NOTE | 2020-08-23 15:21 | MHC.CM.PN ---
pt dcd home with resumption fof [facility]
== END 2020-08-23 15:40 | disposition home or self-care (01) | DRG 134 ==
LOC: HO.ED 07:29 → HO.EDOVER 10:19 → HO.IMC 19:29
PROVIDERS: Nurse Practitioner Acute Care; Admitting Provider Internal Medicine; Emergency Provider Emergency Medicine; PCP Nurse Practitioner Primary Care; Visit Provider Family Medicine
DX: I26.99 Other pulmonary embolism without acute cor pulmonale (principal); F11.20 Opioid dependence, uncomplicated; F17.210 Nicotine dependence, cigarettes, uncomplicated; Z20.822 Contact with and (suspected) exposure to COVID-19; Z71.6 Tobacco abuse counseling; Z86.711 Personal history of pulmonary embolism; Z86.718 Personal history of other venous thrombosis and embolism; Z79.01 Long term (current) use of anticoagulants; Z79.899 Other long term (current) drug therapy
CPT/HCPCS: 36415; 71045; 71275; 80048; 80076; 80307; 81003; 84484; 85025; 85379; 85610; 85730; 87635; 93005; 93306; 93970; 96374; 99284; 99285; Q9967

== ENCOUNTER 2023-05-15 10:10 | Emergency (ER) | payer OTHER, SELFPAY ==
--- NOTE | ~2023-05-15 | XR_ITS ---
EXAMINATION: XR HUMERUS, LEFT CLINICAL INFORMATION: Left upper arm foreign body. COMPARISON: None available. TECHNIQUE: AP and lateral views of the left humerus. FINDINGS: Linear 1.3 cm radiodense foreign body within the medial soft tissues of the left upper arm. The position is mid shaft of the humerus. No underlying bony abnormality. XR/XR humerus LT IMPRESSION: 1.3 cm linear radiodense foreign body retained within the medial soft tissues of the left upper arm.
[2023-05-15 10:21] VITALS: BP 103/79; PULSE 66; RESP 18; TEMP 36.7; O2SAT 98; BMI 19.3
--- NOTE | 2023-05-15 11:02 | ED_ITS ---
HPI - General Adult General Chief complaint: Skin/Abscess/Foreign Body Stated complaint: Needle stuck in arm Time Seen by Provider: 05/15/23 11:02 Source: patient Mode of arrival: ambulatory Limitations: no limitations History of Present Illness HPI narrative: Patient is a 27 year old assigned male at with a history of IV drug use presenting to the emergency department today with a needle in his left upper ar m. Patient states that approximately 30 minutes ago, he went to use IV drugs in his left upper arm when the needle broke off inside. Patient denies any dizziness, lightheadedness, abdominal pain, nausea, vomiting, fever, chills, blurry vision, double vision, loss of vision, chest pain, difficulty breathing, shortness of breath, back pain, night sweats, pain with urination, increased urinary frequency, increased urinary urgency, blood in his urine or stool, syncope or a near syncopal episode, bowel incontinence, bladder incontinence, bowel retention, bladder retention, or any other complaints at this time. Onset (ago): minute(s) Location: left and upper extremity Radiation: non-radiation Severity: mild Relieving factors: none Associated symptoms: denies other symptoms Treatments prior to arrival: none Related Data Home Medications Medication Instructions Recorded Confirmed methadone 40 mg soluble tablet 30 mg PO DAILY 07/26/20 09/02/20 quetiapine 100 mg tablet 1 tab PO BEDTIME PRN insomnia 07/26/20 08/21/20 Previous Rx's Medication Instructions Recorded cuco.stocking,thigh,reg,med #2 ea 09/02/20 compress.stocking,knee,reg,med #2 ea 09/02/20 apixaban 5 mg tablet (Eliquis) 5 mg PO BID #60 tabs 11/01/20 apixaban 5 mg tablet (Eliquis) 5 mg PO BID pulmonary embolis #70 11/01/20 tabs cephalexin 500 mg capsule 500 mg PO Q6H 7 days #28 caps 05/15/23 Allergies Allergy/AdvReac Type Severity Reaction Status Date / Time No Known Allergies Allergy Verified 05/15/23 10:20 Review of Systems Constitutional: Constitutional: Reports no additional constitutional complain ts, Denies chills, Denies fever(s) and Denies night sweats Eyes: Eyes: Reports no additional eye complaints, Denies blurry vision, Denies change in vision, Denies diplopia, Denies eye discharge, Denies loss of vision and Denies eye pain ENT: Denies dizziness Cardiovascular: Cardiovascular: Reports no additional cardiovascular complaints, Denies chest pain, Denies lightheadedness, Denies Loss of Consciousness and Denies dyspnea Respiratory: Respiratory: Reports no additional respiratory complaints and Denies dyspnea Gastrointestinal: Gastrointestinal: Reports no additional gastrointestinal complaints, Denies abdominal pain, Denies melena, Denies hematochezia, Denies change in bowel habits and Denies change in stool character Genitourinary: Genitourinary: Reports no additional male genitourinary complaints, Denies hematuria, Denies oliguria, Denies difficulty urinating, Denies dysuria, Denies urinary frequency, Denies urinary hesitancy, Denies urinary incontinence and Denies urinary urgency Musculoskeletal: Musculoskeletal: Reports no additional musculoskeletal complaints, Denies numbness and Denies tingling Comments: needle inside left upper arm Neurologic: Denies dizziness, Denies loss of vision, Denies numbness and Denies tingling Psychiatric: Psychiatric: Reports no additional psychiatric complaints Endocrine: Endocrine: Reports no additional endocrine complaints Hematologic/Lymphatic: Hematologic/Lymphatic: Reports no additional hematologic/lymphatic complaints Allergic/Immunologic: Allergic/Immunologic: Reports no additional allergic/immunologic complaints [facility]LY [facility] Past Medical History Attestation statement: The following information was validated with the patient. Source: old records reviewed and nursing notes reviewed Medical History Bilateral pulmonary embolism Left leg DVT Drug addiction in remission Knee effusion Surgical History Hx of knee surgery Family History Family History Mother ALS (amyotrophic lateral sclerosis) Maternal Grandfather Lung cancer Paternal Grandmother Lung cancer Maternal Grandmother Diabetes Sister Asthma Social History Social History Household Members: Family Household Members Other:: mother, stepdad, girlfriend Housing: House Do you presently have visiting nurse or other home services: No Alcohol intake: never Comment: sleeping Cigarette Packs Per Day: 0.5 Substance Use Type: Crack/Cocaine, IV Drugs and Marijuana service: No Physical Exam ED Vital Signs: Vital Signs - 24 hr 05/15/23 10:21 Temperature 98.0 F Pulse Rate 66 Respiratory Rate 18 Blood Pressure 103/79 Pulse Oximetry 98 Oxygen Delivery Method Room Air BMI result Body Mass Index 19.3 Const General: cooperative, no acute distress, alert and awake Nutritional Appearance: well nourished Orientation/consciousness: patient oriented x3 Limitations: no limitations HENMT Head: Yes normal to inspection and Yes atraumatic Ears: hearing grossly normal bilaterally and external ears normal General nose exam: Normal external nose present, no nasal discharge noted and no epistaxis Face and sinus: Yes normal facial exam, No abrasion and No laceration Mouth: Normal oral and palatal mucosa present, no drooling and no muffled voice Eyes General: appearance normal, both eyes and all related structures Periorbital: periorbital findings normal Eyelids: Yes eyelids normal Conjunctivae: conjunctivae normal Pupils: Equal, round and reactive pupils present EOM: EOMs intact bilaterally Neck Neck: Yes normal visual inspection, Yes full ROM and Yes no lymphadenopathy Chest Chest palpation & inspection: normal inspection of the chest Resp Effort & Inspection: normal respiratory effort and able to speak in complete sentences GI Inspection: Yes normal to inspection Neuro General: patient oriented x3 and moves all extremities Cranial nerves: Yes Equal, round and reactive pupils present Cognition (Neuro): normal cognition Motor exam (neuro): 5/5 motor strength present throughout Sensory Exam: Normal double simultaneous stimulation for sensation Coordination: [id number] test normal Extrem Other: small foreign body felt in the left upper arm, along the medial aspect, with palpation General: Yes normal to inspection, Yes full ROM and Yes capillary refill normal Psych Appearance: grossly normal Mental Status: mental status grossly normal Affect: normal affect Attitude: cooperative Thought process: Normal thought process present Thought content: Normal thought content present Insight: Good insight present (Psych) Medications Administered Discontinued Medications Generic Name Dose Route Start Last Admin Trade Name Freq PRN Reason Stop Dose Admin Naloxone HCl 8 mg 05/15/23 11:30 05/15/23 11:52 Naloxone Hcl Nasal Take Home 4 Mg Raymond NOSTRILALT 05/15/23 11:31 Not Given ONCE ONE Medical Decision Making Medical Decision Making MDM Narrative: Patient is a 27 year old assigned male at with a history of IVDU presenting to the emergency department today with a needled in his left upper arm. Patient's physical exam was as noted in the physical exam portion of this note. Patient's left humerus x-ray showed a 1.3cm linear radiodense foreign body in the medial soft tissue of the left upper arm. I consulted with the general surgeon who recommended covering the patient with PO antibiotics and having the patient follow up on an outpatient basis in their office. I explained my physical exam findings as well as all test results to the patient. I answered all questions asked by the patient. I stressed the importance of the patient taking his medication as prescribed. I stressed the importance of the patient following up with his primary care provider and the general surgeons office. I stressed the importance of the patient returning to the emergency department immediately if his symptoms were to worsen or if he were to develop any dizziness, shortness of breath, difficulty breathing, chest pain, blurry vision, loss of vision, nausea, vomiting, abdominal pain, fever, chills, back pain, or any other complaints. Patient verbalized agreement and understanding with this treatment plan and discharge. Differential Diagnosis Differential Diagnoses: The differential diagnosis associated with the presentation includes Foreign body in left upper arm Admission/Observation Consideration of admission/observation: Escalation of care including admission/observation considered Patient would have been admitted to the hospital had his work up had any findings where hospital admission was appropriate and his clinical presentation warranted hospital admission. Consult Healthcare Provider Management of the patient was discussed with: Paper Stripper (spoke with the general surgeon as noted in the MDM Rationale portion of this note.) Independent Interpretation I performed an independent interpretation of an: Plain X-Ray Interpretation: My interpretation is in agreement with the radiologist's impression of this imaging study. EXAMINATION: XR HUMERUS, LEFT CLINICAL INFORMATION: Left upper arm foreign body. COMPARISON: None available. TECHNIQUE: AP and lateral views of the left humerus. FINDINGS: Linear 1.3 cm radiodense foreign body within the medial soft tissues of the left upper arm. The position is mid shaft of the humerus. No underlying bony abnormality. XR/XR humerus LT IMPRESSION: 1.3 cm linear radiodense foreign body retained within the medial soft tissues of the left upper arm Dictated By: Matt Holloway MD Signed By: Electronically signed by Matt Holloway MD 05/15/23 105 Radiology Impression Discussion of test interpretation with radiology: I have reviewed the radiologist's reading. Prescription Management I considered prescription management with: Antibiotic (patient prescribed a prophylactic antibiotic given retained needle in the left upper arm) Critical Care Time Critical Care Time Critical Care Time: Yes Total Critical Care Time: 35 Attestation: I spent 35 minutes of Critical Care Time with this patient. This does not in clude time spent on separately reported billable procedures. Discharge Plan Discharge Clinical Impression: Retained foreign body Patient Disposition: Home, Self-Care Instructions: Soft Tissue Foreign Body (ED) Additional Instructions: Call the general surgeons office TODAY for an appointment to have the needle fragment in your arm removed. Follow up with your primary care provider. Return to the emergency department immediately if your symptoms worsen or if you develop any dizziness, shortness of breath, difficulty breathing, chest pain, blurry vision, loss of vision, nausea, vomiting, abdominal pain, fever, chills, back pain, or any other complaints. Prescriptions: New cephalexin 500 mg capsule 500 mg PO Q6H 7 Days Qty: 28 0RF No Action quetiapine 100 mg tablet 1 tab PO BEDTIME PRN (Reason: insomnia) methadone 40 mg Tablet,Soluble 30 mg PO DAILY (DME) cuco.stocking,thigh,reg,med Misc Qty: 2 0RF Rx Instructions: As Directed (DME) compress.stocking,knee,reg,med Misc Qty: 2 0RF Rx Instructions: As Directed Eliquis 5 mg Tablet 5 mg PO BID Qty: 60 6RF Eliquis 5 mg tablet 5 mg PO BID Qty: 70 0RF Rx Instructions: Take 10 mg twice daily for 7 days then continue with 5 mg twice daily. Referrals: [facility] [Provider Group] (Call to establish and follow up with the general surgeons office to have the needle fragment removed. ) [facility] [place]] (Call to establish and follow up with a primary care provider. If you already have a primary care provider, please follow up with them.) [facility] [place] [Provider Group] (Call to establish and follow up with a primary care provider. If you already have a primary care provider, please follow up with them.) [facility] [[place] Group] (Call to establish and follow up with a primary care provider. If you already have a primary care provider, please follow up with them.) Interventions: ED Discharge Assessment Last Done: 05/15/23 11:54 Discharge Date/Time: 05/15/23 11:56 Print Language: Rw[place]an
== END 2023-05-15 11:56 | disposition home or self-care (01) ==
PROVIDERS: Emergency Provider Student in an Organized Health Care Education/Training Program
DX: M79.5 Residual foreign body in soft tissue (principal); F19.90 Other psychoactive substance use, unspecified, uncomplicated; F11.20 Opioid dependence, uncomplicated; Z86.718 Personal history of other venous thrombosis and embolism; Z79.01 Long term (current) use of anticoagulants
CPT/HCPCS: 73060; 99283

== ENCOUNTER 2023-05-21 11:15 | Outpatient (AMB) | payer OTHER, SELFPAY ==
[2023-05-21 11:17] VITALS: BP 144/86; PULSE 98; BMI 19.9
--- NOTE | 2023-05-21 11:17 | A.OFFVIS_ITS ---
Intake Vital Signs 05/21/23 11:17 Height 5 ft 9 in Weight 135 lb BMI 19.9 BP 144/86 H Blood Pressure Location Rt brachial Position Sitting Pulse 98 Intake Visit Reasons: foreign object in arm muscle Intake Note: Patient referred by ER for foreign body in Lt upper arm. X-ray on 05-15-23. Patient c/o: denies pain, redness, itch. 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 This happened a few days ago. Actually saw the patient very briefly in the emergency department as a curbside consult. Patient presents here for foreign body removal. Chart was reviewed patient evaluated. Patient is not on Eliquis although it is listed on his meds list. [facility] Medical History Bilateral pulmonary embolism Left leg DVT Drug addiction in remission Knee effusion Surgical History Hx of knee surgery Family History Mother ALS (amyotrophic lateral sclerosis) Maternal Grandfather Lung cancer Paternal Grandmother Lung cancer Maternal Grandmother Diabetes Sister Asthma Social History (Updated 05/21/23 @ 11:24 by LUCILA Bernal) Household Members: Family Household Members Other:: mother, stepdad, girlfriend Housing: House Do you presently have visiting nurse or other home services: No Alcohol intake: never Comment: sleeping Patient Tobacco Use Status: Current someday Tobacco user Tobacco use type: Cigarette Cigarette Packs Per Day: 0.5 Cigarettes Per Day: 8 Substance Use Type: Crack/Cocaine, IV Drugs and Marijuana service: No Physical Exam Vital Signs: Last Vital Signs Pulse 98 05/21/23 11:17 BP 144/86 H 05/21/23 11:17 BMI result Body Mass Index 19.9 Chest Other: Chest breath sounds bilaterally, HS 1 and 2. GI Other: Abdomen soft, benign Extrem Other: Left upper inner arm has track nettles from chronic IVDA use. Marked induration of the area. No evidence of any infection or palpation of the foreign body. Assessment & Plan Assessment & Plan (1) Foreign body (FB) in soft tissue: Code(s): M79.5 - Residual foreign body in soft tissue Plan Humerus x-ray confirms the foreign body. Risks, benefits, alternatives of foreign body retrieval with fluoroscopy were reviewed the patient and included but not limited to bleeding, infection, failure to find the foreign body, numbness, pain, scarring the patient wishes to proceed. All questions answered. Arrangements were made for this. Coding Level of Care Code New Pt Level 5 (34078) Diagnoses Foreign body (FB) in soft tissue M79.5
== END 2023-05-21 11:30 | disposition home or self-care (01) ==
PROVIDERS: Visit Provider Surgery
DX: M79.5 Residual foreign body in soft tissue (principal)
CPT/HCPCS: 99204

== ENCOUNTER → 2023-05-21 11:15 | Outpatient (BNVA) | payer OTHER, SELFPAY | PROVIDERS: Visit Provider Surgery | DX: M79.5 Residual foreign body in soft tissue (principal) | CPT/HCPCS: 99202 ==

== ENCOUNTER → 2023-05-24 08:07 | Day surgery (SDC) | payer OTHER, SELFPAY ==
--- NOTE | 2023-05-22 15:16 | HO.ANESPROP2 ---
HPI - Anesthesia Eval Consult details Narrative: Cx'd for +Utox DOS 27yo M for Foreign Body Removal upper arm polysub abuse Hx PE/DVT - no anticoag rx PMFSH Active Problems Active Problems: All Active Problems (Updated 05/16/23 @ 00:00 by Bethel Kuo) Foreign body (FB) in soft tissue (Acute) DVT of leg (deep venous thrombosis) (Chronic) Pulmonary embolism (Acute) Pulmonary embolism and infarction (Acute) Past Medical History Medical History Bilateral pulmonary embolism Left leg DVT Drug addiction in remission Knee effusion Family History Family History Mother ALS (amyotrophic lateral sclerosis) Maternal Grandfather Lung cancer Paternal Grandmother Lung cancer Maternal Grandmother Diabetes Sister Asthma Surgical History Surgical History Hx of knee surgery Social History Social History (Updated 05/21/23 @ 11:24 by LUCILA Bernal) Household Members: Family Household Members Other:: mother, stepdad, girlfriend Housing: House Do you presently have visiting nurse or other home services: No Alcohol intake: never Comment: sleeping Patient Tobacco Use Status: Current everyday Tobacco user Tobacco use type: Cigarette Cigarette Packs Per Day: 0.5 Cigarettes Per Day: 8 Years Smoked: 10 Smoked in Last 30 Days: Yes Use of substances other than those prescribed or required for medical reasons: Yes Substance Use Type: Crack/Cocaine, IV Drugs and Marijuana Substance Use Frequency: Daily Are you DNR?: No Advance Directives: No Advance Directives Information Provided: Yes service: No Meds Allergies Allergy/AdvReac Type Severity Reaction Status Date / Time No Known Allergies Allergy Verified 05/24/23 08:20 Assessment and Plan Assessment Anesthesia Assessment: Chart Reviewed
--- NOTE | 2023-05-23 19:38 | MHC.SHP ---
Pre-Procedural Eval Section A Date of Service: 05/23/23 The patient is an INPATIENT: No Changes since office visit: No Cold of Flu in the past 2 weeks, No New Medical Problems, No Changes in Medication and No Patient answered all questions The History & Physical has been completed within 30 days and I have reviewed it.: Yes Section B Chief Complaint: Residual foreign body in soft tissue Allergies: Allergies Allergy/AdvReac Type Severity Reaction Status Date / Time No Known Allergies Allergy Verified 05/21/23 11:21 Plan I have reviewed the history and physical and performed a pertinent physical examination on my patient. No changes have occurred unless specified. Time Spent With Patient Time: Total time managing care of this patient today ____ minutes.
[2023-05-24 08:21] VITALS: BMI 20.2
[2023-05-24 08:33] LABS: Amphetamine Screen Urine Not Detected (Not Detect); Barbiturates, Urine Not Detected (Not Detect); Benzodiazepines Screen Urine Not Detected (Not Detect); Cannabinoid Screen Urine POSITIVE (Not Detect); Cocaine Screen Urine POSITIVE (Not Detect); Fentanyl, urine POSITIVE (Not Detect); Opiate Screen Urine POSITIVE (Not Detect); Phencyclidine Screen Urine Not Detected (Not Detect)
--- NOTE | 2023-05-24 10:19 | PC.NURSE ---
Patient in preop. Utox obtained per anesthesia. Patient voiced to this nurse that he used heroin yesterday, no other drug per him. Dr. Stanton and Dr. Roca made aware. Utox resulted with multiple positives. Case cancelled per anesthesia. Dr. Hollis made aware and at bedside to discuss with patient. All belongings returned to patient. Patient left preop, ride in waiting room.
== END ==
PROVIDERS: Anesthesiology; Visit Provider Surgery
DX: M79.5 Residual foreign body in soft tissue (principal); Z53.09 Procedure and treatment not carried out because of other contraindication; R82.5 Elevated urine levels of drugs, medicaments and biological substances
CPT/HCPCS: 80307

== ENCOUNTER 2023-09-30 13:05 | Emergency (ER) | payer OTHER, SELFPAY ==
--- NOTE | ~2023-09-30 | US_ITS ---
EXAMINATION: US VENOUS ULTRASOUND WITH DOPPLER LOWER EXTREMITY, LEFT CLINICAL INFORMATION: History of DVT. Redness and pain in the left calf. COMPARISON: Prior venous Doppler ultrasound exam bilateral August 23, 2020 TECHNIQUE: Ultrasound of the deep veins is performed from the hip to the calf with compression sonography and color and pulse Doppler assessment. Spectral analysis with color-flow imaging is performed. FINDINGS: Left lower extremity. Chronic appearing nonocclusive thrombus in the femoral vein through the popliteal vein. There is normal vascular flow in the calf involving the posterior tibial vein and peroneal vein. In the proximal thigh there is normal vascular flow in the common femoral vein and greater saphenous vein and the profunda vein. No popliteal cyst. US/US venous duplex LE LT IMPRESSION: Chronic appearing nonocclusive thrombus in the femoral vein through the popliteal vein. No evidence of acute thrombus.
[2023-09-30 13:22] VITALS: BP 112/76; PULSE 79; RESP 16; TEMP 36.6; O2SAT 100; BMI 18.5
--- NOTE | 2023-09-30 13:22 | ED_ITS ---
HPI - General Adult General Chief complaint: Extremity Injury, Lower Stated complaint: L leg swelling no inj Related Data Previous Rx's ?Medication ?Instructions ?Recorded cuco.stocking,thigh,reg,med #2 ea 09/02/20 compress.stocking,knee,reg,med #2 ea 09/02/20 apixaban 5 mg (74 tabs) tablets in 5 mg PO BID #74 ea 10/03/23 a dose pack (Eliquis DVT-PE Treat 30D Start) Allergies Allergy/AdvReac Type Severity Reaction Status Date / Time No Known Allergies Allergy Verified 10/08/23 19:34 [facility] Past Medical History Medical History Bilateral pulmonary embolism Left leg DVT Drug addiction in remission Knee effusion Surgical History Hx of knee surgery Family History Family History Mother ALS (amyotrophic lateral sclerosis) Maternal Grandfather Lung cancer Paternal Grandmother Lung cancer Maternal Grandmother Diabetes Sister Asthma Social History Social History (Updated 05/21/23 @ 11:24 by LUCILA Bernal) Household Members: Family Household Members Other:: mother, stepdad, girlfriend Housing: House Do you presently have visiting nurse or other home services: No Alcohol intake: never Comment: sleeping Patient Tobacco Use Status: Current everyday Tobacco user Tobacco use type: Cigarette Cigarette Packs Per Day: 0.5 Cigarettes Per Day: 8 Years Smoked: 10 Substance Use Type: Crack/Cocaine, IV Drugs and Marijuana Advance Directives: No Advance Directives Information Provided: No Do you have a plan to hurt others: No Plan service: No Physical Exam ED Vital Signs: BMI result Body Mass Index 18.5 Course Course Course Narrative: This is an RME: Additional HPI, ROS, PE not included below will be deferred to primary provider. 28 yo m with pmhx of DVT, PE, presents with l sided leg swelling, pain and redness since last night. States he is supposed to be taking blood thinners but has not been taking blood thinners. Discharge Plan Discharge Clinical Impression: Eloped from emergency department Patient Disposition: Left W/O Completing Treatment Prescriptions: No Action (DME) cuco.stocking,thigh,reg,med Misc Qty: 2 0RF Rx Instructions: As Directed (DME) compress.stocking,knee,reg,med Misc Qty: 2 0RF Rx Instructions: As Directed Eliquis DVT-PE Treat 30D Start 5 mg (74 tabs) tablets,dose pack 5 mg PO BID Qty: 74 0RF Rx Instructions: 10mg PO BID x 7 days, then 5mg PO BID Discharge Date/Time: 09/30/23 19:45
== END 2023-09-30 19:45 | disposition left against medical advice (07) ==
PROVIDERS: Emergency Provider Emergency Medicine
DX: R60.0 Localized edema (principal); F17.210 Nicotine dependence, cigarettes, uncomplicated; Z91.148 Patient's other noncompliance with medication regimen for other reason
CPT/HCPCS: 93971; 99281; 99284

== ENCOUNTER 2023-10-03 13:24 | Emergency (ER) | payer OTHER, SELFPAY ==
[2023-10-03 13:31] VITALS: BP 135/81; PULSE 93; RESP 18; TEMP 36.6; O2SAT 99; BMI 18.9
--- NOTE | 2023-10-03 13:33 | ED.EXTPRO ---
HPI - Extremity Problem General Chief complaint: General Medical Stated complaint: test results for l leg seen 2 days ago Time Seen by Provider: 10/03/23 17:00 Source: patient Mode of arrival: ambulatory Limitations: no limitations History of Present Illness HPI Narrative: Patient is a 28-year-old male with history of left lower extremity DVT and IV drug use presenting to the emergency department with complaint of left lower leg redness, pain, and swelling. States pain is intermittent and described as cramping. States that he wants to go to detox at [facility] and they are requesting that he be restarted on Eliquis prior to coming to detox. States he has been off Eliquis for the last year. Patient was seen in this emergency department on 09/29 and had ultrasound but eloped from department prior to treatment. He denies any chest pain, palpitations, shortness of breath, dizziness, lightheadedness, headaches, vision changes or any other symptoms. MD Complaint: extremity pain and extremity swelling Pain Consistency: intermittent Quality: aching Associated symptoms: denies other symptoms Context: history of DVT Related Data Previous Rx's ?Medication ?Instructions ?Recorded cuco.stocking,thigh,reg,med #2 ea 09/02/20 compress.stocking,knee,reg,med #2 ea 09/02/20 apixaban 5 mg (74 tabs) tablets in 5 mg PO BID #74 ea 10/03/23 a dose pack (Eliquis DVT-PE Treat 30D Start) Allergies Allergy/AdvReac Type Severity Reaction Status Date / Time No Known Allergies Allergy Verified 10/03/23 13:33 Review of Systems Review of Systems: As per HPI. Yes all other systems are reviewed and are negative Constitutional: Constitutional: Reports as per HPI [facility] Past Medical History Medical History Bilateral pulmonary embolism Left leg DVT Drug addiction in remission Knee effusion Surgical History Hx of knee surgery Family History Family History Mother ALS (amyotrophic lateral sclerosis) Maternal Grandfather Lung cancer Paternal Grandmother Lung cancer Maternal Grandmother Diabetes Sister Asthma Social History Social History (Updated 05/21/23 @ 11:24 by LUCILA Bernal) Household Members: Family Household Members Other:: mother, stepdad, girlfriend Housing: House Do you presently have visiting nurse or other home services: No Alcohol intake: never Comment: sleeping Patient Tobacco Use Status: Current everyday Tobacco user Tobacco use type: Cigarette Cigarette Packs Per Day: 0.5 Cigarettes Per Day: 8 Years Smoked: 10 Substance Use Type: Crack/Cocaine, IV Drugs and Marijuana Advance Directives: No service: No Physical Exam Vital Signs: Vital Signs: Last Vital Signs Temp 98.2 F 10/03/23 16:57 Pulse 78 10/03/23 16:57 Resp 18 10/03/23 16:57 BP 135/84 10/03/23 16:57 Pulse Ox 98 10/03/23 16:57 O2 Del Method Room Air 10/03/23 16:57 BMI result Body Mass Index 18.9 Vital signs have been reviewed and appear to be correct. Blood pressure normal. Heart rate normal. Respiratory rate normal. Temperature normal. Oxygen saturation normal. Const: General: cooperative, healthy appearing and no acute distress Orientation/consciousness: oriented to person, oriented to place, oriented to time and patient oriented x3 Limitations: no limitations HEENT: Head: Yes normocephalic and Yes atraumatic Ears: external ears normal General nose exam: Normal external nose present Face and sinus: Yes face symmetric Mouth: oropharynx normal and moist mucous membranes Throat: Yes uvula midline Eyes: Pupils: Equal, round and reactive pupils present Neck: Neck: Yes normal visual inspection and Yes supple Resp: Effort & Inspection: normal respiratory effort and able to speak in complete sentences Auscultation: clear to auscultation bilaterally Cardio: Rate: regular rate Rhythm: regular rhythm Heart sounds: S1 normal heart sound present and S2 normal heart sound present GI: Palpation (GI): Soft to palpation and nontender Auscultation: normoactive bowel sounds : General: Yes no CVA tenderness Back/Spine/Pelvis: Back: no CVA tenderness Skin: General skin exam: elasticity normal and turgor normal Neuro: General: oriented to person, oriented to place, oriented to time, patient oriented x3, moves all extremities, no focal motor deficits and CN's II-XI intact bilaterally Cranial nerves: Yes Equal, round and reactive pupils present Cognition (Neuro): normal cognition Extrem: General: Yes full ROM Left lower extremity: normal capillary refill, lower leg Details: erythema Location: of the distal lower leg (circumferential) and foot Details: vascular exam Details: dorsalis pedis pulse present and posterior tibial pulse present Psych: Mental Status: mental status grossly normal Affect: normal affect Thought process: Normal thought process present Course Course Course Narrative: This is a rapid medical exam completed by Eula STABLE ATTENDANT: Additional HPI, ROS, PE not included below will be deferred to primary provider. Concerns for increased swelling and erythema of left lower extremity. Hx of DVT in LLE several years ago, previously on Eliquis, but stopped a year ago bc he does not have a PCP to prescribe the medications. Reports that he uses IV heroin with last use yesterday. Reports that [facility] but that they won't take him until he gets the leg evaluated. Denies chest pain, shortness of breath, fevers US Venous LLE 09/30/23: IMPRESSION: Chronic appearing nonocclusive thrombus in the femoral vein through the popliteal vein. No evidence of acute thrombus. Plan: Blood work Medical Decision Making Medical Decision Making [facility] Narrative: Patient is a 28-year-old male with history of left lower extremity DVT and IV drug use presenting to the emergency department with complaint of left lower leg redness, pain, and swelling. On exam patient is awake, A+Ox3, VS WNL, afebrile, normal neurological exam without focal deficits, physical exam findings as above. Given reported symptoms and physical exam findings, initial differential includes left lower extremity DVT versus cellulitis. Review of EMR shows ultrasound performed on 09/30/2023 notable for chronic nonocclusive thrombus in femoral vein through popliteal vein. My interpretation is in agreement with the radiologist's interpretation. Case discussed with Dr. Couch who is in agreement with restarting patient on Eliquis. Given that patient has been off his Eliquis for at least 1 year, will restart at 10 mg p.o. b.i.d. x7 days, then 5 mg p.o. b.i.d. and will refer to vascular. Return precautions discussed at bedside. Patient verbalized understanding of and agreement with plan. Differential Diagnosis Differential Diagnoses: The differential diagnosis associated with the presentation includes dvt, cellulitis, venous stasis Admission/Observation Consideration of admission/observation: Escalation of care including admission/observation considered Patient would have been admitted to the hospital had their work up had any findings where hospital admission was appropriate and their clinical presentation warranted hospital admission. Lab Data [facility] Lab Attestation statement: I reviewed the patient's lab results. as per [facility] 10/03/23 14:20 10/03/23 14:20 Labs: Lab Results 10/03/23 Range/Units 14:20 WBC 9.8 (4.8-10.8) X10*3/uL RBC 4.92 (4.60-5.80) X10*6/uL Hgb 14.1 (14.0-18.0) g/dl Hct 40.2 L (42.0-52.0) % MCV 81.7 (80.0-98.0) fL MCH 28.7 (27.0-33.0) pg MCHC 35.1 (31.0-36.0) g/dl RDW 12.7 (11.0-16.0) % Plt Count 145 L (160-400) X10*3/uL MPV 11.1 (9.4-12.4) fL Immature Gran % (Auto) 0.4 (0.0-0.4) % Neut % (Auto) 68.3 (45-73) % Lymph % (Auto) 20.3 (20-40) % [place] % (Auto) 9.6 (2-11) % Eos % (Auto) 0.9 (0-4) % Baso % (Auto) 0.5 (0-2) % Lymph # (Auto) 2.0 (1.2-4.9) X10*3/uL [place] # (Auto) 1.0 (0.1-1.2) X10*3/uL Eos # (Auto) 0.1 (0.0-0.4) X10*3/uL Baso # (Auto) 0.1 (0.0-0.2) X10*3/uL Abs Immat Gran (auto) 0.04 H (0.00-0.03) X10*3/uL Absolute Neuts (auto) 6.7 (2.0-8.3) x10*3/uL Absolute Nucleated RBC 0.000 (0.0-0.012) X10*3/uL Nucleated RBC % (auto) 0.0 (0.0-0.2) /100WBC Smear Tech's Comments VERIFIED Sodium 139 (135-145) mmol/L Potassium 3.9 (3.3-5.1) mmol/L Chloride 100 (96-108) mmol/L Carbon Dioxide 26 (22-29) mmol/L Anion Gap 17 (12-20) BUN 15 (9-16) mg/dL Creatinine 1.10 (0.5-1.4) mg/dL Estim Creat Clear Calc 78.4 Estimated GFR > 60 Random Glucose 95 (60-115) mg/dL Calcium 9.9 D (8.4-10.2) mg/dL Total Bilirubin 0.4 (0.0-1.0) mg/dL AST 23 (5-37) U/L ALT 17 (0-40) U/L Alkaline Phosphatase 75 (39-117) U/L Total Protein 9.0 H (6.5-8.0) g/dL Albumin 4.3 (3.5-5.0) g/dL Independent Interpretation I performed an independent interpretation of an: Ultrasound Interpretation: LLE DVT on U/S Radiology Impression Discussion of test interpretation with radiology: I have reviewed the radiologist's reading. Radiologist Impression: US/US venous duplex LE LT IMPRESSION: Chronic appearing nonocclusive thrombus in the femoral vein through the popliteal vein. No evidence of acute thrombus. External Record Review External record reviewed: Inpatient record, Office record and Outpatient record Prescription Management I considered prescription management with: Other Discharge Plan Discharge Clinical Impression: DVT of leg (deep venous thrombosis) Qualifiers: Affected thrombotic vein of extremity: femoral Chronicity: acute Laterality: left Qualified Code(s): I82.412 - Acute embolism and thrombosis of left femoral vein Patient Disposition: Home, Self-Care Instructions: Apixaban (By mouth), Deep Vein Thrombosis (ED), Blood Thinners (ED) Additional Instructions: You were evaluated in the emergency department today for left lower leg pain and redness. Your ultrasound performed on 09/30/2023 showed evidence of a DVT, also known as a blood clot, in your left leg. You are being restarted on Eliquis, please take this medication as prescribed. You will need to follow-up with vascular, please call their office to schedule an appointment. Return to the emergency department if you develop chest pain, palpitations, shortness of breath, dizziness or lightheadedness, fainting, increasing leg pain or swelling, change of color in your leg or any other concerning symptoms. Prescriptions: New Eliquis DVT-PE Treat 30D Start 5 mg (74 tabs) tablets,dose pack 5 mg PO BID Qty: 74 0RF Rx Instructions: 10mg PO BID x 7 days, then 5mg PO BID No Action (DME) cuco.stocking,thigh,reg,med Misc Qty: 2 0RF Rx Instructions: As Directed (DME) compress.stocking,knee,reg,med Misc Qty: 2 0RF Rx Instructions: As Directed Referrals: Durga Barnett MD [Physician] - Print Language: Spanish
[2023-10-03 14:30] LABS: Basophils Absolute Auto 0.1 X10*3/uL (0.0-0.2); Basophils Percent Auto 0.5 % (0-2); Eosinophils Absolute Auto 0.1 X10*3/uL (0.0-0.4); Eosinophils Percent Auto 0.9 % (0-4); Hematocrit 40.2 % (42.0-52.0); Hemoglobin 14.1 g/dl (14.0-18.0); Imm Gran Abs Auto 0.04 X10*3/uL (0.00-0.03); Imm Gran Pct Auto 0.4 % (0.0-0.4); Lymphocytes Percent Auto 20.3 % (20-40); MANUAL DIFF FLAG SCAN; Mean Corpuscular HGB Conc 35.1 g/dl (31.0-36.0); Mean Corpuscular Hemoglobin 28.7 pg (27.0-33.0); Mean Corpuscular Volume 81.7 fL (80.0-98.0); Mean Platelet Volume 11.1 fL (9.4-12.4); Monocytes Percent Auto 9.6 % (2-11); Neutrophils Absolute Auto 6.7 x10*3/uL (2.0-8.3); Neutrophils Percent Auto 68.3 % (45-73); PLT CLUMP 1; Red Blood Count 4.92 X10*6/uL (4.60-5.80); Red Cell Distribution Width 12.7 % (11.0-16.0); SCAN SMEAR FLAG 1
[2023-10-03 14:38] LABS: Alanine Aminotransferase 17 U/L (0-40); Albumin Level 4.3 g/dL (3.5-5.0); Alkaline Phosphatase 75 U/L (39-117); Anion Gap 17 (12-20); Aspartate Amino Transferase 23 U/L (5-37); Bilirubin Total 0.4 mg/dL (0.0-1.0); Blood Urea Nitrogen 15 mg/dL (9-16); Calcium 9.9 mg/dL (8.4-10.2); Carbon Dioxide 26 mmol/L (22-29); Chloride 100 mmol/L (96-108); Creatinine Clr Calc Pharmacy 78.4; Estimated Glomerular Filt Rate > 60; Glucose Random 95 mg/dL (60-115); Potassium 3.9 mmol/L (3.3-5.1); Sodium 139 mmol/L (135-145)
[2023-10-03 15:26] LABS: Platelet Count 145 X10*3/uL (160-400); SLIDE REVIEW VERIFIED; White Blood Count 9.8 X10*3/uL (4.8-10.8)
[2023-10-03 16:57] VITALS: BP 135/84; PULSE 78; RESP 18; TEMP 36.8; O2SAT 98
[2023-10-03 18:27] VITALS: BP 135/84; PULSE 78; RESP 18; TEMP 36.8; O2SAT 98
== END 2023-10-03 18:27 | disposition home or self-care (01) ==
PROVIDERS: Nurse Practitioner Family; Emergency Provider Emergency Medicine
DX: I82.412 Acute embolism and thrombosis of left femoral vein (principal); Z79.899 Other long term (current) drug therapy
CPT/HCPCS: 36415; 80053; 85025; 99282; 99283

== ENCOUNTER 2023-10-08 18:08 | Emergency (ER) | payer OTHER, SELFPAY ==
[2023-10-08 19:31] VITALS: BP 136/91; PULSE 83; RESP 20; TEMP 36.1; O2SAT 98; BMI 21.1
--- NOTE | 2023-10-08 20:46 | ED_ITS ---
HPI - General Adult General Chief complaint: General Medical Stated complaint: LT leg swelling Time Seen by Provider: 10/08/23 21:34 Source: patient Mode of arrival: ambulatory Limitations: no limitations History of Present Illness HPI narrative: 28 yo male with chronic LLE DVT who was seen here 5 days ago and restarted on Eliquis presents to the ER for ongoing pain and swelling in the LLE. He has been compliant with Eliquis. No chest pain or SOB. He states the pain is so severe he has a hard time walking. It waxes and wanes, tends to be the worst in the mornings. Pain radiates from the foot up the entire leg. He continues to use IV drugs and is trying to get into detox. He does not inject in his legs or feet. MD complaint: LLE pain and swelling Onset (ago): week(s) Location: left and lower extremity Radiation: proximal Severity: severe Quality: stabbing and sharp Pain Consistency: intermittent Relieving factors: immobilization and rest Exacerbating factors: movement Associated symptoms: denies other symptoms Treatments prior to arrival: none Related Data Previous Rx's ?Medication ?Instructions ?Recorded cuco.stocking,thigh,reg,med #2 ea 09/02/20 compress.stocking,knee,reg,med #2 ea 09/02/20 apixaban 5 mg (74 tabs) tablets in 5 mg PO BID #74 ea 10/03/23 a dose pack (Eliquis DVT-PE Treat 30D Start) Allergies Allergy/AdvReac Type Severity Reaction Status Date / Time No Known Allergies Allergy Verified 10/08/23 19:34 Review of Systems Review of Systems: Yes all other systems are reviewed and are negative [facility] Past Medical History Medical History Bilateral pulmonary embolism Left leg DVT Drug addiction in remission Knee effusion Surgical History Hx of knee surgery Family History Family History Mother ALS (amyotrophic lateral sclerosis) Maternal Grandfather Lung cancer Paternal Grandmother Lung cancer Maternal Grandmother Diabetes Sister Asthma Social History Social History (Updated 05/21/23 @ 11:24 by LUCILA Bernal) Household Members: Family Household Members Other:: mother, stepdad, girlfriend Housing: House Do you presently have visiting nurse or other home services: No Alcohol intake: never Comment: sleeping Patient Tobacco Use Status: Current everyday Tobacco user Tobacco use type: Cigarette Cigarette Packs Per Day: 0.5 Cigarettes Per Day: 8 Years Smoked: 10 Substance Use Type: Crack/Cocaine, IV Drugs and Marijuana Advance Directives: No Advance Directives Information Provided: No Do you have a plan to hurt others: No Plan service: No Physical Exam ED Vital Signs: Vital Signs - 24 hr 10/08/23 19:31 Temperature 97 F Pulse Rate 83 Respiratory Rate 20 Blood Pressure 136/91 H Pulse Oximetry 98 Oxygen Delivery Method Room Air BMI result Body Mass Index 21.1 Appearance: Alert. Oriented X3. pale, thin HEENT: normal external inspection CVS: Normal heart rate and rhythm. Respiratory: No respiratory distress. Skin: Skin warm and dry. Normal skin color. Normal skin turgor. No rashes. Extremities: left lower leg with hyperpigmentation, taught skin, 2+ pitting edema of lower leg, tender to touch. warm. foot is tender and swollen as well Neuro/psych: Oriented X 3. No motor deficit. No sensory deficit. CN II-XII intact. Normal speech and cognition. Course Course Course Narrative: This is a Rapid Medical Examination (RME) performed by Cheyanne Alejandre PA-C in triage. Full HPI, ROS, assessment and treatment plan per primary provider in the Main ED. 28-year-old male with a history of IV durg use, DVT/PE in 2020, now with chronic left lower extremity DVT and recently restarted on Eliquis 5 days ago presents to the ER for evaluation of waxing and waning left lower extremity pain and swelling. He has been compliant with his Eliquis since re-initiated on it. He states the swelling and pain waxed and waned throughout the day, making ambulation very difficult. He is continuing to use IV drugs. He was seen here recently and told to follow up with Dr. Barnett but has not called the office yet. Plan: Too early to repeat ultrasound to assess for response to NOAC. discuss w/ Dr. Barnett for possible intervention verses pain management Medical Decision Making Medical Decision Making MDM Narrative: 28 yo male with history of drug use and DVT/PE in 2020 back with LLE pain after being restarted on Eliquis 5 days ago from chronic LLE DVT. No role in repeating ultrasound today to assess for more clot or NOAC failure. Case was d/w Dr. Barnett who reviewed - no intervention is recommended at this time Patient admits he is not elevating often and can't get his compression sock on his foot so has not been wearing it. provided BIJAL wrap and advised to get new compression stockings, elevate more. advised to follow up with Vascular and Heme/onc Now that he is back on Eliquis he plans to go to detox, he has been calling daily for a bed stable for d/c home with outpatient follow up Differential Diagnosis Differential Diagnoses: The differential diagnosis associated with the presentation includes recurrent DVT, unprovoked DVT, provoked DVT, NOAC failure, hypercoagulable state, arterial clot External Record Review External record reviewed: Outpatient record and Prior outpatient radiology Prescription Management I considered prescription management with: Pain Medication Chronic Conditions Patient?s care impacted by: Other (chronic DVT) Critical Care Time Critical Care Time Critical Care Time: No Discharge Plan Discharge Clinical Impression: DVT of leg (deep venous thrombosis) Qualifiers: Affected thrombotic vein of extremity: femoral Chronicity: acute Laterality: left Qualified Code(s): I82.412 - Acute embolism and thrombosis of left femoral vein Patient Disposition: Home, Self-Care Instructions: Deep Vein Thrombosis (ED) Additional Instructions: continue your Eliquis elevate your leg whenever possible wear compression sock or BIJAL wrap to help with swelling follow up with Dr. Barnett - no acute interventions recommended at this time recommend following up with Hematology as well for hypercoagulable workup If you develop new or worsening symptoms call 911 or come back to the ER for further evaluation. Prescriptions: No Action (DME) cuco.stocking,thigh,reg,med Misc Qty: 2 0RF Rx Instructions: As Directed (DME) compress.stocking,knee,reg,med Misc Qty: 2 0RF Rx Instructions: As Directed Eliquis DVT-PE Treat 30D Start 5 mg (74 tabs) tablets,dose pack 5 mg PO BID Qty: 74 0RF Rx Instructions: 10mg PO BID x 7 days, then 5mg PO BID Referrals: [facility] [place]Provider Group] [facility] [place] [Provider Group] Discharge Date/Time: 10/08/23 21:41 Print Language: Tajik
[2023-10-08 21:41] VITALS: BP 136/91; PULSE 83; RESP 20; TEMP 36.1; O2SAT 98
== END 2023-10-08 21:41 | disposition home or self-care (01) ==
PROVIDERS: Emergency Provider Emergency Medicine
DX: I82.412 Acute embolism and thrombosis of left femoral vein (principal); Z86.711 Personal history of pulmonary embolism; Z79.01 Long term (current) use of anticoagulants
CPT/HCPCS: 99282

== ENCOUNTER 2023-12-19 19:29 | Emergency (ER) | payer OTHER, SELFPAY ==
--- NOTE | ~2023-12-19 | XR_ITS ---
EXAMINATION: XR HAND, RIGHT CLINICAL INFORMATION: Trauma COMPARISON: None available. TECHNIQUE: PA, lateral, and oblique views of the right hand. FINDINGS: Question irregularity of the ulnar dorsal soft tissues overlying the small finger at the level of the middle phalanx and PIP joint. I do not see a fracture or foreign body. Remaining bones joints soft tissues normal XR/XR hand RT min 3V . IMPRESSION: 1. No fracture or foreign body. 2. Question irregularity of the soft tissues overlying the small finger. This could reflect soft tissue injury.
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
[2023-12-19 19:34] VITALS: BP 125/71; PULSE 111; RESP 18; TEMP 36.7; O2SAT 98; BMI 19.2
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
[2023-12-19 20:45] VITALS: BP 135/63; PULSE 88; RESP 17; O2SAT 97
[2023-12-20 00:10] VITALS: BP 134/83; PULSE 94; RESP 16; TEMP 37.5; O2SAT 98
[2023-12-20] MEDS: Lidocaine HCl 1 % MPF 5 ML VIAL 10 ML INFILTRATI (00:42)
--- NOTE | 2023-12-20 00:58 | PC.NURSE ---
pt is a iv drug user and has no iv sites, provider is aware and po meds will be given.
[2023-12-20 02:30] VITALS: BP 146/70; PULSE 72; RESP 16; TEMP 36.3; O2SAT 94
[2023-12-20] MEDS: Amoxicillin/Potassium Clav 875 MG TABLET PO (02:48)
== END 2023-12-20 02:47 | disposition home or self-care (01) ==
PROVIDERS: Emergency Provider Internal Medicine
DX: S12.500A Unspecified displaced fracture of sixth cervical vertebra, initial encounter for closed fracture (principal); S61.411A Laceration without foreign body of right hand, initial encounter; S80.212A Abrasion, left knee, initial encounter; S80.211A Abrasion, right knee, initial encounter; Y04.2XXA Assault by strike against or bumped into by another person, initial encounter; Y04.1XXA Assault by human bite, initial encounter; Y93.89 Activity, other specified; Y92.9 Unspecified place or not applicable; Y99.9 Unspecified external cause status
CPT/HCPCS: 12001; 70450; 72125; 73130; 99284; J0295

== ENCOUNTER → 2024-01-30 12:01 | Outpatient (RCR) | payer MEDICAID, SELFPAY ==
[2020-07-26 11:03] VITALS: BP 110/65; PULSE 91; RESP 14; TEMP 36.9; O2SAT 94; BMI 20.4
--- NOTE | 2020-07-26 11:03 | PM.HEMONCCN ---
Subjective - Subjective Chief complaint: Left leg pain and swelling Patient: new to practice Consult date: 07/26/20 HPI - Consult Narrative Reason for consult: Left lower extremity DVT and bilateral pulmonary emboli Narrative: Fritz Lawrence is a 25 year old male who was diagnosed with extensive left lower extremity DVT and bilateral subsegmental pulmonary emboli on 07/23/2020. According to the patient he developed some pain and swelling on the morning of his visit to the emergency room. The night before he was playing video games on his TV, he was standing for nearly 2 hours. He reports no extremity trauma or long plane or car rides. He does have a history of IV drug abuse, 3 months ago he was diagnosed with right upper extremity clot because he was shooting up in that arm. He was not on any blood thinners. He went into inpatient rehab for about a month and he has been clean ever since. He does smoke daily. He denies any family history of thromboembolism. He denies any other symptoms such as fever, chills, night sweats or unexplained weight loss. He tested negative for COVID-19. Review of Systems - Constitutional Denies anorexia, Denies body aches, Denies chills, Denies malaise, Denies night sweats, Denies poor appetite - Cardiovascular Denies chest pain, Denies chest pain at rest, Denies chest pain with activity, Denies fast heart rate - Respiratory Denies chest congestion, Denies cough, Denies wheezing - Gastrointestinal Denies abdominal pain, Denies black, tarry stools, Denies change in stools, Denies constipation - Musculoskeletal Reports no additional musculoskeletal complaints - Integumentary/Breasts Skin/Breast: Reports no additional skin complaints - Neurologic Reports no additional neurologic complaints [facility] Medical History: Medical History (Last Updated 07/26/20 @ 15:57 by Lucy Panchal MD) Bilateral pulmonary embolism Drug addiction in remission Knee effusion Left leg DVT Family History: Family History (Last Updated 07/26/20 @ 11:08 by Ana Franks) Mother ALS (amyotrophic lateral sclerosis) Maternal Grandfather Lung cancer Paternal Grandmother Lung cancer Maternal Grandmother Diabetes Sister Asthma Social History: Social History (Last Updated 07/26/20 @ 11:08 by Ana Franks) Alcohol History: Alcohol intake: former Alcohol History Details: Alcohol intake frequency: does not drink Tobacco History: Smoking Status: Current every day smoker Tobacco Type: Cigarette Packs Per Day: 0.5 Cigarettes Per Day: 10.0 Substance Use History: Use of substances other than those prescribed or required for medical reasons: Yes Substance Use Type: Crack/Cocaine Substance Use Type: IV Drugs Substance Use Type: Marijuana Home Medications and Allergies Home Medications Medication Instructions Recorded Confirmed Type apixaban [Eliquis] 5 mg PO BID 07/26/20 07/26/20 History methadone 35 mg PO DAILY 07/26/20 07/26/20 History quetiapine 1 tab PO BEDTIME PRN 07/26/20 07/26/20 History Allergies Allergy/AdvReac Type Severity Reaction Status Date / Time No Known Allergies Allergy Verified 07/23/20 22:54 Physical Exam Vital signs: Vital Signs Temp Pulse Resp BP Pulse Ox 07/26/20 11:03 98.5 F 91 14 110/65 94 Intake and Output 07/26/20 07/26/20 07/26/20 06:59 14:59 22:59 Other: Weight 60.9 kg [place] Weight in Grams [id number] Patient Weight 07/27/20 06:59 Weight 60.9 kg - Constitutional Present: no acute distress - Routine HEENT Exam Head: Present: normal inspection Eye: Present: EOMI - Routine Respiratory Exam Present: CTAB - Routine Cardiovascular Exam Cardiovascular: Present: S1, S2 (Left leg swelling and edema) - Routine Extremities Exam Present: pedal edema, tenderness Hem/Onc Consult Result - Labs Labs: Laboratory Tests 07/23/20 07/24/20 07/24/20 14:19 06:52 14:42 WBC 10.6 RBC 4.04 L Hgb 11.9 L Hct 34.9 L MCV 86.4 Plt Count 135 L PT 14.7 H INR 1.2 H APTT 36.8 dRVVT Confirm Interp NEGATIVE Lupus Anticoag Interp SEE NOTE Assessment and Plan (1) DVT of leg (deep venous thrombosis) Status: Acute Qualifiers: Affected thrombotic vein of extremity: femoral Chronicity: acute Laterality: left Qualified Code(s): I82.412 - Acute embolism and thrombosis of left femoral vein 1. This is a 25-year-old male with extensive left lower extremity DVT and bilateral subsegmental pulmonary emboli. This was diagnosed on 07/23/2020. He was advised inpatient admission for further management because of fairly extensive nature of clot and consideration for thrombolysis. 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 He started taking Eliquis 10 mg p.o. b.i.d. from yesterday. However he reports persistent if not increased pain in his left lower extremity. He denies any respiratory symptoms. I have asked him to discontinue Eliquis. I am starting him on Lovenox 60 mg subQ b.i.d. for the next 2 weeks. He can be transitioned back to Eliquis once his acute symptoms have resolved. He is advised to go to the emergency room if this does not help and he has persistent or worsening symptoms. As for the cause of the DVT, it appears to be unprovoked. He does have a prior history of IV drug abuse and developed, apparently, right upper extremity thrombosis at the site of drug usage. This appears to have been diagnosed in a different hospital. He was advised to completely abstain from IV drug abuse as well as cut back or stop smoking which increases his risk of recurrent DVT. Thrombophilia workup has been submitted and is pending. Depending on that recommendations about duration of anticoagulation will be made on the subsequent visit. Overall time spent with the patient was 45 minutes. Greater than 30 minute spent counseling the patient about diagnosis and further management. Follow-up in 3 weeks.
--- NOTE | 2020-07-26 11:43 | MHC.HEMONC ---
NO PA REQUIRED FOR Lovenox (enoxaparin) PER [employer] [facility] WEBSITE
--- NOTE | 2020-07-26 11:47 | MHC.HEMONC ---
Pt educated on how to administer Lovenox injection to self. Pt educated to call with any questions and to return if any concerns to us or the ED.
--- NOTE | 2020-07-26 11:59 | MHC.HEMONCMA ---
Patient came in for a consult for his bilateral PE's and left leg, states he is in pain. His entire chart was reviewed and updated. He was given directions on how to give himself the Lovonox injections by Elizabeth. Dr Panchal sent a prescription to a DME company so he can have some crutches. He will return 3 weeks.
--- NOTE | 2020-07-29 10:39 | MHC.HEMONCMA ---
Patient called to let our office know that he got an appt with his new PCP Lisa Ortiz and has a new patient appt with him on 08/05/2020.
[2020-08-16 14:09] VITALS: BP 131/68; PULSE 64; RESP 12; TEMP 36.8; O2SAT 99; BMI 22.5
--- NOTE | 2020-08-16 14:14 | PM.HEMONCPN ---
Medical Summary - Medical Summary Date of Service: 08/16/20 Chief complaint: Left leg swelling Medical Summary: Diagnosis: Left DVT/PE Jul 2020 Extensive left lower extremity DVT and bilateral subsegmental pulmonary emboli on 07/23/2020. According to the patient he developed some pain and swelling on the morning of his visit to the emergency room. The night before he was playing video games on his TV, he was standing for nearly 2 hours. He reports no extremity trauma or long plane or car rides. He does have a history of IV drug abuse, 3 months ago he was diagnosed with right upper extremity clot because he was shooting up in that arm. He was not on any blood thinners. He went into inpatient rehab for about a month and he has been clean ever since. He does smoke daily. He denies any family history of thromboembolism. Interval History Interval history: Patient is here in follow-up. He is on Lovenox twice daily. He reports improvement in pain but he still has some redness and swelling of the left leg. He denies any pleuritic chest pain, shortness of breath or cough. No bruising or bleeding. Review of Systems - Neurologic Reports no additional neurologic complaints [facility] Medical History: Medical History (Last Updated 07/26/20 @ 15:57 by Lucy Panchal MD) Bilateral pulmonary embolism Drug addiction in remission Knee effusion Left leg DVT Family History: Family History (Last Updated 07/26/20 @ 11:08 by Ana Franks) Mother ALS (amyotrophic lateral sclerosis) Maternal Grandfather Lung cancer Paternal Grandmother Lung cancer Maternal Grandmother Diabetes Sister Asthma Surgical History: Surgical History (Last Updated 08/16/20 @ 14:11 by Ana Franks) Hx of knee surgery Social History: Social History (Last Updated 07/26/20 @ 11:08 by Ana Franks) Alcohol History: Alcohol intake: former Alcohol History Details: Alcohol intake frequency: does not drink Tobacco History: Smoking Status: Current every day smoker Tobacco Type: Cigarette Packs Per Day: 0.5 Substance Use History: Use of substances other than those prescribed or required for medical reasons: Yes Substance Use Type: Crack/Cocaine Substance Use Type: IV Drugs Substance Use Type: Marijuana Smoking status: Current every day smoker Home Medications and Allergies Home Medications Medication Instructions Recorded Confirmed Type methadone 35 mg PO DAILY 07/26/20 07/26/20 History quetiapine 1 tab PO BEDTIME PRN 07/26/20 07/26/20 History Allergies Allergy/AdvReac Type Severity Reaction Status Date / Time No Known Allergies Allergy Verified 07/23/20 22:54 Exam Vital signs: Vital Signs Temp 98.2 F 08/16/20 14:09 Pulse 64 08/16/20 14:09 Resp 12 08/16/20 14:09 BP 131/68 08/16/20 14:09 Pulse Ox 99 08/16/20 14:09 Intake & Output 08/15/20 08/16/20 08/16/20 18:59 06:59 18:59 Other: Weight 67.3 kg Weight in Grams 00330 Weight 67.3 kg Body Mass Index 22.5 - Constitutional Present: no acute distress - Routine HEENT Exam Head: Present: normal inspection - Routine Respiratory Exam Present: CTAB - Routine Cardiovascular Exam Cardiovascular: Present: S1, S2 (Left leg swelling and edema) - Routine Extremities Exam Present: pedal edema, tenderness Progress Note: A/P (1) DVT of leg (deep venous thrombosis) Status: Acute Assessment and plan: 1. This is a 25-year-old male with extensive left lower extremity DVT and bilateral subsegmental pulmonary emboli. This was diagnosed on 07/23/2020. He was advised inpatient admission for further management because of fairly extensive nature of clot and consideration for thrombolysis. 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 He had a prior clot in his left upper extremity when he was using IV drugs. He was switched from Eliquis to Lovenox 60 mg subQ b.i.d. on 07/26/2020. He reports improvement in symptoms but he has persistent redness and swelling of the left leg. His D-dimer is also elevated. I have asked him to continue Lovenox for another 10 days and then transition to Eliquis 10 mg b.i.d. followed by 5 mg b.i.d. Patient was advised to call immediately if he develops any worsening of his symptoms. Follow-up in 3 months. - Time Spent With Patient Total time spent is greater than 50% in coordination of care (as documented) at patient's floor/unit and/or counseling patient: 15 - 24 minutes
--- NOTE | 2020-08-16 15:14 | MHC.HEMONCMA ---
Patient came in for a follow up today, states he is doing much better- he looks much better. He came in walking, no need for a crutch or wheel chair. States he is using the lovonox as directed and still going to the methadone clinic for help. He starts seeing his new counselor Saturday. Clinical summary reviewed and updated. Patient had labs and will come back in 6 months for a follow up.
[2020-08-16 15:22] LABS: D Dimer 2561 NG/ML
[2020-09-02 13:36] VITALS: BP 141/84; PULSE 75; RESP 12; TEMP 37.2; O2SAT 98; BMI 22.0
--- NOTE | 2020-09-02 13:56 | P.PNHO_ITS ---
Medical Summary - Medical Summary Date of Service: 09/02/20 Chief complaint: Follow-up Medical Summary: Diagnosis: Left DVT/PE Jul 2020, bilateral pulmonary embolism diagnosed August 2020 Extensive left lower extremity DVT and bilateral subsegmental pulmonary emboli on 07/23/2020. According to the patient he developed some pain and swelling on the morning of his visit to the emergency room. The night before he was playing video games on his TV, he was standing for nearly 2 hours. He reports no extremity trauma or long plane or car rides. He does have a history of IV drug abuse, 3 months ago he was diagnosed with right upper extremity clot because he was shooting up in that arm. He was not on any blood thinners. He went into inpatient rehab for about a month and he has been clean ever since. He does smoke daily. He denies any family history of thromboembolism. Admitted for chest pain, chest CT 08/22/2020 showed moderate volume of acute pulmonary emboli within the pulmonary arteries to the right lung and probable small cell segmental pulmonary embolus in the left lower lobe, new compared to prior study on 07/23/2020. Possible pulmonary infarction also seen. D-dimer remains elevated 964 however down from 2561 on August 16. Interval History Interval history: Patient is here in follow-up. He is doing better, chest pain has resolved. However he complains of swelling of his left leg. He is on his feet all day, at night he tries to keep his leg elevated as much as possible. He does not report increase in pain in his left leg. He denies shortness of breath, dizziness, chest pain, hematochezia or melena. He is taking Eliquis 5 mg twice daily. He has not been using any drugs. He is on methadone. Review of Systems - Constitutional Reports as per HPI, Reports no additional constitutional complaints - Cardiovascular Reports no additional cardiovascular complaints - Respiratory Reports no additional respiratory complaints - Gastrointestinal Reports no additional gastrointestinal complaints - Neurologic Reports no additional neurologic complaints [facility] Medical History: Medical History (Last Reviewed 08/21/20 @ 22:09 by Lisseth Riley RN) Bilateral pulmonary embolism Drug addiction in remission Knee effusion Left leg DVT Family History: Family History (Last Reviewed 08/21/20 @ 22:09 by Lisseth Riley RN) Mother ALS (amyotrophic lateral sclerosis) Maternal Grandfather Lung cancer Paternal Grandmother Lung cancer Maternal Grandmother Diabetes Sister Asthma Surgical History: Surgical History (Last Reviewed 08/21/20 @ 22:09 by Lisseth Riley RN) Hx of knee surgery Social History: Social History (Last Updated 07/26/20 @ 11:08 by Ana Franks) Living Situation History: Household Members: Family Housing: House Alcohol History: Alcohol intake: never Alcohol History Details: Alcohol intake frequency: does not drink Tobacco History: Smoking Status: Current every day smoker Tobacco Type: Cigarette Packs Per Day: 0.5 Substance Use History: Use of substances other than those prescribed or required for medical reasons : Yes Substance Use Type: Crack/Cocaine Substance Use Type: IV Drugs Substance Use Type: Marijuana Occupation Assessmet: service: No Smoking status: Current every day smoker Home Medications and Allergies Home Medications Medication Instructions Recorded Confirmed Type methadone 30 mg PO DAILY 07/26/20 09/02/20 History quetiapine 1 tab PO BEDTIME PRN 07/26/20 08/21/20 History Allergies Allergy/AdvReac Type Severity Reaction Status Date / Time No Known Allergies Allergy Verified 07/23/20 22:54 Exam Vital signs: Vital Signs Temp 98.9 F 09/02/20 13:36 Pulse 75 09/02/20 13:36 Resp 12 09/02/20 13:36 BP 141/84 H 09/02/20 13:36 Pulse Ox 98 09/02/20 13:36 Intake & Output 09/01/20 09/02/20 09/02/20 18:59 06:59 18:59 Other: Weight 65.7 kg Weight in Grams 85116 Weight 65.7 kg Body Mass Index 22.0 - Constitutional Present: no acute distress - Routine HEENT Exam Head: Present: normal inspection - Routine Respiratory Exam Present: CTAB - Routine Cardiovascular Exam Cardiovascular: Present: S1, S2 (Left leg swelling and edema) - Routine Extremities Exam Present: pedal edema, tenderness Data - Labs CBC & Chem 7: 09/02/20 13:58 Labs: 08/16/20 14:29 DDimer [D Dimer] Routine Laboratory Last Values D-Dimer 2561 NG/ML 08/16/20 14:29 Progress Note: A/P (1) DVT of leg (deep venous thrombosis) Status: Chronic Assessment and plan: 1. This is a 25-year-old male with extensive left lower extremity DVT and bilateral subsegmental pulmonary emboli. This was diagnosed on 07/23/2020. He was admitted in August with increasing chest pain, found to have worsening pulmonary emboli. He was treated with IV heparin and later switched to Eliquis. He had missed a few doses of Eliquis and was also doing IV drugs. He is now on methadone. I have recommended compression stocking for his left leg. Leg elevation as much as possible. He is not symptomatic from his pulmonary embolism. D-dimer is coming down, CBC is stable. Follow-up in 3 months. - Time Spent With Patient Total time spent is greater than 50% in coordination of care (as documented) at patient's floor/unit and/or counseling patient: 15 - 24 minutes
[2020-09-02 14:24] LABS: MANUAL DIFF FLAG NO
--- NOTE | 2020-09-02 14:24 | MHC.HEMONCMA ---
Patient came in for a follow up, states he is doing well. Clinical summary reviewed and updated. Patient had labs, and will return in 6 months. Compression stockings were sent to [facility].
[2020-09-02 14:35] LABS: Basophils Absolute Auto 0.1 X10*3/uL (0.0-0.2); Basophils Percent Auto 0.7 % (0-2); Eosinophils Absolute Auto 0.4 X10*3/uL (0.0-0.4); Eosinophils Percent Auto 4.1 % (0-4); Hematocrit 35.9 % (42-52); Hemoglobin 11.7 g/dl (14.0-18.0); Imm Gran Abs Auto 0.04 X10*3/uL (0.00-0.03); Imm Gran Pct Auto 0.4 % (0.0-0.4); Lymphocytes Absolute Auto 2.3 X10*3/uL (1.2-4.9); Lymphocytes Percent Auto 23.2 % (20-40); Mean Corpuscular HGB Conc 32.6 g/dl (31.0-36.0); Mean Corpuscular Hemoglobin 28.5 pg (27.0-33.0); Mean Corpuscular Volume 87.6 fL (80-98); Mean Platelet Volume 9.7 fL (9.4-12.4); Monocytes Absolute Auto 0.8 X10*3/uL (0.1-1.2); Monocytes Percent Auto 7.8 % (2-11); Neutrophils Absolute Auto 6.3 X10*3/uL (2.0-8.3); Neutrophils Percent Auto 63.8 % (45-73); Platelet Count 259 X10*3/uL (160-400); Red Cell Distribution Width 12.8 % (11.0-16.0); White Blood Count 9.9 X10*3/uL (4.8-10.8)
[2020-09-02 14:42] LABS: D Dimer 566 NG/ML
--- NOTE | 2020-09-12 08:41 | MHC.HEMONCMA ---
Called and spoke with the patient, I told him we got his voicemail about the stockings. I apologized that I did not tell him that we switched pharmacies, he ended up buying some from [facility]. He is still complaining of leg and foot swelling of the left leg. I told him to get the stockings from [facility] and that I will talk to the doctor about what he should do. I spoke with Dr Panchal, she states there is nothing more she can really do. She said for him to get the stockings from [facility] and see how the leg does in a few weeks, if it is still swollen to call us back. Patient is aware and agrees with plan. All questions were answered and he will call back if he needs too.
== END | disposition home or self-care (01) ==
LOC: HO.ONC 07-26 10:46
PROVIDERS: Visit Provider Internal Medicine
DX: I26.94 Multiple subsegmental thrombotic pulmonary emboli without acute cor pulmonale (principal); I82.412 Acute embolism and thrombosis of left femoral vein; F17.210 Nicotine dependence, cigarettes, uncomplicated; F14.10 Cocaine abuse, uncomplicated; Z79.01 Long term (current) use of anticoagulants; Z71.6 Tobacco abuse counseling
CPT/HCPCS: 36415; 85025; 85379; 99204; 99214

== ENCOUNTER → 2024-04-02 12:59 | Outpatient (BNVA) | payer OTHER, SELFPAY | PROVIDERS: Visit Provider Internal Medicine ==

== ENCOUNTER 2024-06-17 11:36 | Emergency (ER) | payer MEDICAID, SELFPAY ==
[2024-06-17] VITALS (7 sets, daily range): BP systolic 131–132; BP diastolic 80–88; PULSE 60–96; RESP 18–20; TEMP 36.6–37.4; O2SAT 95–97; BMI 19.8
--- NOTE | ~2024-06-17 | CT_ITS ---
CLINICAL HISTORY: left sided pleuritic chest pain CT ANGIOGRAPHY CHEST WITH CONTRAST. 3D POSTPROCESSING. Comparison: CT - CT ANGIO CHEST PE PROTOCOL - 08/21/20 06:31 EDT Findings: The heart size is normal. RV/LV ratio is normal. Unremarkable thoracic aorta and great vessels. No aneurysm. No acute pulmonary embolus. The visualized thyroid and mediastinum are unremarkable. No consolidation, pleural effusion or pneumothorax. The visualized upper abdomen is unremarkable. No acute fractures. IMPRESSION: 1. No pulmonary embolus. This document has been electronically signed by: Bruna Pickens DO on 06/17/2024 20:05:13
--- NOTE | ~2024-06-17 | XR_ITS ---
EXAMINATION: XR CHEST CLINICAL INFORMATION: pain COMPARISON: X-ray dated August 21, 2020. TECHNIQUE: 2 views of the chest were obtained. FINDINGS: No consolidation, pleural effusion or pneumothorax. Hyperinflated lungs. Cardia mediastinal silhouette is normal in size. Osseous structures are intact. Mild S-shaped curvature of the thoracic spine. XR/XR chest 2V IMPRESSION: No acute airspace disease. Hyperinflated lungs. Electronically signed by: Ferny Davila MD 06/17/2024 01:00 PM JUAN
--- NOTE | 2024-06-17 11:51 | ED_ITS ---
HPI - General Adult General Chief complaint: Dyspnea Stated complaint: L Side Sharp Pain SOB Time Seen by Provider: 06/17/24 17:30 Source: patient Mode of arrival: ambulatory Limitations: no limitations History of Present Illness HPI narrative: This is a 28-year-old man with a past medical history of DVT/PE, heroin abuse who presents for evaluation of left lateral chest and upper back pain. Patient states that he was diagnosed with the COVID-19 about 2 weeks ago. Patient reports that he repeated testing as COVID-19 test came back negative. He states no associated fevers. He states initially dry cough with no sputum production or hemoptysis. He states no cough at this time. He states no exertional chest pain. Patient reports that he has has noted left-sided pleuritic chest pain over the last few days. He states that since he has previously had blood clots in his lungs he presents for evaluation due to this concern. Patient states he has previously had DVT, but states that he does not have any calf pain or swelling. He states no abdominal pain. He states no dyspnea. He states no nausea, vomiting or changes to bowel habits. He states no urinary symptoms. He states he does smoke pack a day for the last several years. Related Data Previous Rx's ?Medication ?Instructions ?Recorded cuco.stocking,thigh,reg,med #2 ea 09/02/20 compress.stocking,knee,reg,med #2 ea 09/02/20 Allergies Allergy/AdvReac Type Severity Reaction Status Date / Time No Known Allergies Allergy Verified 06/17/24 12:01 Review of Systems 2 Review of Systems: ROS as per HPI [facility] Past Medical History Medical History Bilateral pulmonary embolism Left leg DVT Drug addiction in remission Knee effusion Surgical History Hx of knee surgery Family History Family History (Updated 04/02/24 @ 13:16 by Farnaz Morin CMA) Mother ALS (amyotrophic lateral sclerosis) Maternal Grandfather Lung cancer Paternal Grandmother Lung cancer Maternal Grandmother Diabetes Sister Asthma Social History Social History (Updated 05/21/23 @ 11:24 by LUCILA Bernal) Household Members: Family Household Members Other:: mother, stepdad, girlfriend Housing: House Do you presently have visiting nurse or other home services: No Alcohol intake: never Comment: sleeping Patient Tobacco Use Status: Current everyday Tobacco user Tobacco use type: Cigarette Cigarette Packs Per Day: 0.5 Cigarettes Per Day: 8 Years Smoked: 10 Smoked in Last 30 Days: Yes Use of substances other than those prescribed or required for medical reasons: No Substance Use Type: Crack/Cocaine, IV Drugs and Marijuana Advance Directives: No Advance Directives Information Provided: Yes Do you have a plan to hurt others: No Plan service: No Physical Exam ED Vital Signs: Vital Signs - 24 hr 06/17/24 11:50 06/17/24 11:54 06/17/24 17:45 Temperature 99.3 F 99.3 F Pulse Rate 79 79 79 Respiratory Rate 20 20 20 Blood Pressure 132/88 132/88 Pulse Oximetry 95 95 Oxygen Delivery Method Room Air Room Air 06/17/24 17:46 06/17/24 20:00 06/17/24 20:21 Temperature 97.9 F Pulse Rate 60 96 Respiratory Rate 20 18 Blood Pressure 131/80 Pulse Oximetry 97 97 Oxygen Delivery Method Room Air Room Air 06/17/24 20:24 Temperature 97.9 F Pulse Rate 96 Respiratory Rate 19 Blood Pressure 131/80 Pulse Oximetry 97 Oxygen Delivery Method Room Air BMI result Body Mass Index 19.8 Gen: NAD, AOx3 HEENT: NCAT, EOMI, normal conjunctiva CV: RRR, no murmurs appreciated Pulm: Diffuse expiratory wheezes, no increased work of breathing or respiratory distress GI: Soft, NTND Neuro: Grossly non focal Course Course Course Narrative: RME, this is a rapid medical exam performed by Sebastien Hall please refer to primary provider for complete H&P- 28-year-old male presents for evaluation of shortness of breath and left-sided chest pain. He has been sick for about a week and a half. Plan for chest x-ray and viral swabs. The patient does have a history of DVT and PE. He does not know was the trigger for his DVT/PE a couple of years ago. He is not currently anticoagulated reports he was on Eliquis for 1 month. Plan for labs and a chest x-ray Medications Administered Discontinued Medications Generic Name Dose Route Start Last Admin Trade Name Freq PRN Reason Stop Dose Admin Albuterol Sulfate 4 puff 06/17/24 19:52 06/17/24 19:59 Albuterol Sulfate 90 Mcg 8 Gm Inhaler INHALE 06/17/24 19:53 4 puff ONCE ONE Administration Albuterol Sulfate 5 mg/ 0 mg 06/17/24 17:41 06/17/24 17:45 Albuterol/Ipratropium 3 ml INHALE 06/17/24 17:42 1 each ONCE ONE Administration Ibuprofen 600 mg 06/17/24 17:37 06/17/24 17:41 Ibuprofen 600 Mg Tablet PO 06/17/24 17:38 600 mg ONCE ONE Administration Iohexol 100 ml 06/17/24 19:23 06/17/24 19:24 Iohexol 350 Mg/Ml 100 Ml Infus..Btl IV 06/17/24 19:24 65 ml ONCE ONE Administration Procedures Procedure Narrative Procedure Narrative: Ultrasound-guided IV 18 gauge 1-3/4 inch IV placed in the left upper extremity, adequate blood return, flushes well secured with Tegaderm. Performed by Anayeli Justice PA-C Medical Decision Making Medical Decision Making MDM Narrative: Differential diagnosis includes, but is not limited to viral illness, pneumonia, pulmonary embolism, pneumonitis. Patient is afebrile and hemodynamically stable on room air. Exam is benign and reassuring . Notable for wheezing consistent with bronchospasm for which patient is provided nebulized bronchodilators. I reviewed the patient's labs, EKG, chest x-ray and CT imaging as below. Patient elected to leave against medical advice. He has decision-making capacity and is free of any distracting injury at this time. He stated the reason for leaving it is medical advice was that he needed to get medications for his mother. Patient did ambulate and developed tachycardic to 110, but had appropriate SpO2 on room air with ambulation. He was provided 4 puffs of albuterol via MDI with a spacer and instructed on appropriate use by R respiratory geotechnicial properties technician. I do have high clinical suspicion for bronchospasm in the setting of recent viral illness and/or the potential for underlying obstructive lung disease given that patient is a daily smoker. However, given patient's pleuritic left-sided chest pain did obtain CT imaging for evaluation of pulmonary infarct and/or pulmonary embolism. Patient did leave against medical advice prior to the CT imaging results. However, I did review the patient's CT imaging results, which demonstrated no acute process and was unremarkable. Admission/Observation Consideration of admission/observation: Escalation of care including admission/observation considered Lab Data MDM Lab Attestation statement: I reviewed the patient's lab results. I independently reviewed and interpreted the patient's blood work including CBC, coagulation studies, metabolic panel, which are benign and reassuring. 06/17/24 13:06 06/17/24 13:06 Labs: Lab Results 06/17/24 06/17/24 Range/Units 13:06 19:36 WBC 10.3 (4.8-10.8) X10*3/uL RBC 5.44 (4.60-5.80) X10*6/uL Hgb 16.1 (14.0-18.0) g/dl Hct 46.8 (42.0-52.0) % MCV 86.0 (80.0-98.0) fL MCH 29.6 (27.0-33.0) pg MCHC 34.4 (31.0-36.0) g/dl RDW 12.5 (11.0-16.0) % Plt Count 239 D (160-400) X10*3/uL MPV 9.7 (9.4-12.4) fL Immature Gran % (Auto) 0.3 (0.0-0.4) % Neut % (Auto) 70.1 (45-73) % Lymph % (Auto) 20.2 (20-40) % [place] % (Auto) 7.4 (2-11) % Eos % (Auto) 1.5 (0-4) % Baso % (Auto) 0.5 (0-2) % Lymph # (Auto) 2.1 (1.2-4.9) X10*3/uL [place] # (Auto) 0.8 (0.1-1.2) X10*3/uL Eos # (Auto) 0.2 (0.0-0.4) X10*3/uL Baso # (Auto) 0.1 (0.0-0.2) X10*3/uL Abs Immat Gran (auto) 0.03 (0.00-0.03) X10*3/uL Absolute Neuts (auto) 7.2 (2.0-8.3) x10*3/uL Absolute Nucleated RBC 0.000 (0.0-0.012) X10*3/uL Nucleated RBC % (auto) 0.0 (0.0-0.2) /100WBC PT 11.4 (10.9-12.4) SEC INR 1.0 (0.9-1.1) Sodium 142 (135-145) mmol/L Potassium 4.4 (3.3-5.1) mmol/L Chloride 105 (96-108) mmol/L Carbon Dioxide 30 H (22-29) mmol/L Anion Gap 11 L (12-20) BUN 20 H (9-16) mg/dL Creatinine 0.90 (0.5-1.4) mg/dL Estim Creat Clear Calc 100.0 Estimated GFR > 60 Random Glucose 77 (60-115) mg/dL Calcium 9.8 (8.4-10.2) mg/dL Total Bilirubin 0.4 (0.0-1.0) mg/dL AST 39 H (5-37) U/L ALT 25 (0-40) U/L Alkaline Phosphatase 68 (39-117) U/L Troponin I High Sens < 2.7 (<3.5-35.0) ng/L Total Protein 9.3 H (6.5-8.0) g/dL Albumin 4.8 (3.5-5.0) g/dL Influenza Type A (PCR) NEGATIVE (Negative) Influenza Type B (PCR) NEGATIVE (Negative) RSV RNA Qual (PCR) NEGATIVE (Negative) SARS-CoV-2 RNA (RT-PCR) POSITIVE A (Negative) Independent Interpretation I performed an independent interpretation of an: EKG, Plain X-Ray and CT Scan Interpretation: I independently reviewed and interpreted the patient's chest x-ray, which demonstrates no pleural effusion, focal consolidation or pneumothorax I independently reviewed and interpreted the patient's EKG, which demonstrates sinus tachycardia at 105 beats per minute, [place] 142, QRS 84, QTC 422, no STEMI I independently reviewed interpreted patient's CT imaging, which demonstrates no central pulmonary embolism. Radiology Impression Discussion of test interpretation with radiology: I have reviewed the radiologist's reading. Radiologist Impression: XR/XR chest 2V IMPRESSION: No acute airspace disease. Hyperinflated lungs. Electronically signed by: Ferny Davila MD 06/17/2024 01:00 PM EST Dictated By: Ferny Russell MD Signed By: <Electronically signed by Ferny Lozoya MD in [place]> 06/17/24 1300 IMPRESSION: 1. No pulmonary embolus. This document has been electronically signed by: Bruna Pickens DO on 06/17/2024 20:05:13 Dictated By: Bruna Pickens MD Signed By: <Electronically signed by Bruna Pickens MD in [place]> 06/17/242005 Discharge Plan Discharge Clinical Impression: Chest pain Patient Disposition: Left Against Medical Advice Instructions: Chest Pain (ED), Wheezing (ED) Additional Instructions: You were seen and evaluated in the emergency room. You decided to leave against medical practice administrator prior to obtaining your CT scan results for evaluation of a blood clot in your lungs. You were found to have wheezing in her lungs and given an inhaler to take home. Please use 4 puffs every 4 hours for the next 24 hours. After 24 hours, you may decrease to every 4 hours as needed. Please follow-up with your primary care doctor in the next 5-7 days. ? Please return to the emergency room if you develop any worsening symptoms including, but not limited to fever, chest pain or difficulty breathing. ? Prescriptions: No Action (DME) cuco.stocking,thigh,reg,med Misc Qty: 2 0RF Rx Instructions: As Directed (DME) compress.stocking,knee,reg,med Misc Qty: 2 0RF Rx Instructions: As Directed Stand Alone Forms: Against Medical Advice Interventions: ED Discharge Assessment Last Done: 06/17/24 20:24 Discharge Date/Time: 06/17/24 20:25 Print Language: [place]
[2024-06-17 13:11] LABS: MANUAL DIFF FLAG NO
[2024-06-17 13:23] LABS: Basophils Absolute Auto 0.1 X10*3/uL (0.0-0.2); Basophils Percent Auto 0.5 % (0-2); Eosinophils Absolute Auto 0.2 X10*3/uL (0.0-0.4); Eosinophils Percent Auto 1.5 % (0-4); Hematocrit 46.8 % (42.0-52.0); Hemoglobin 16.1 g/dl (14.0-18.0); Imm Gran Abs Auto 0.03 X10*3/uL (0.00-0.03); Imm Gran Pct Auto 0.3 % (0.0-0.4); Lymphocytes Absolute Auto 2.1 X10*3/uL (1.2-4.9); Lymphocytes Percent Auto 20.2 % (20-40); Mean Corpuscular HGB Conc 34.4 g/dl (31.0-36.0); Mean Corpuscular Hemoglobin 29.6 pg (27.0-33.0); Mean Platelet Volume 9.7 fL (9.4-12.4); Monocytes Absolute Auto 0.8 X10*3/uL (0.1-1.2); Monocytes Percent Auto 7.4 % (2-11); Neutrophils Absolute Auto 7.2 x10*3/uL (2.0-8.3); Neutrophils Percent Auto 70.1 % (45-73); Platelet Count 239 X10*3/uL (160-400); Red Blood Count 5.44 X10*6/uL (4.60-5.80); Red Cell Distribution Width 12.5 % (11.0-16.0); White Blood Count 10.3 X10*3/uL (4.8-10.8)
[2024-06-17 13:24] LABS: Prothrombin Time 11.4 SEC (10.9-12.4)
[2024-06-17 13:36] LABS: Alanine Aminotransferase 25 U/L (0-40); Albumin Level 4.8 g/dL (3.5-5.0); Alkaline Phosphatase 68 U/L (39-117); Anion Gap 11 (12-20); Aspartate Amino Transferase 39 U/L (5-37); Bilirubin Total 0.4 mg/dL (0.0-1.0); Blood Urea Nitrogen 20 mg/dL (9-16); Calcium 9.8 mg/dL (8.4-10.2); Carbon Dioxide 30 mmol/L (22-29); Chloride 105 mmol/L (96-108); Estimated Glomerular Filt Rate > 60; Glucose Random 77 mg/dL (60-115); Potassium 4.4 mmol/L (3.3-5.1); Sodium 142 mmol/L (135-145); Total Protein 9.3 g/dL (6.5-8.0)
--- NOTE | 2024-06-17 17:38 | ECG_ITS ---
Test Reason : DYSPNEA Blood Pressure : */* mmHG Vent. Rate : 105 BPM Atrial Rate : 105 BPM P-R Int : 142 ms QRS Dur : 84 ms QT Int : 320 ms P-R-T Axes : 79 89 71 degrees QTcB Int : 422 ms Sinus tachycardia Otherwise normal ECG When compared with ECG of 21-Aug-2020 07:36, [place] interval has decreased Vent. rate has increased by 43 bpm Referred By: Boston Sotelo Electronically Signed By: Shant Blank
[2024-06-17] MEDS: Ibuprofen 600 MG TABLET PO (17:41)
[2024-06-17] MEDS: Albuterol Sulfate 5 MG, Albuterol/Iprat 2.5/0.5MG 3 ML 3 ML INHALE (17:45)
[2024-06-17 18:14] LABS: Troponin-I High Sensitivity < 2.7 ng/L (<3.5-35.0)
[2024-06-17] MEDS: iohexoL 350 MG/ML 100 ML INFUS..BTL IV (19:24)
[2024-06-17] MEDS: Albuterol Sulfate 90 MCG 8 GM INHALER 4 PUFF INHALE (19:59)
--- NOTE | 2024-06-17 20:06 | PC.NURSE ---
Dr. Sotelo provider risk and benefit education to pt about leaving with out CT Scan results. respiratory education pt on proper use of inhaler
--- NOTE | 2024-06-17 20:18 | PC.NURSE ---
pt came back shortly after receiving discharge paper work, report increase shortness of breath, O2 assessment/walk test pt O2 as low as 94 percent, education on pt staying rather than leaving, per refusing to stay and reports will come back if he needs too.
--- NOTE | 2024-06-17 20:22 | PC.NURSE ---
Dr. Sotelo, notified and assess pt. pt still left against medical advice.
[2024-06-17 20:32] LABS: Influenza A PCR NEGATIVE (Negative); Influenza B PCR NEGATIVE (Negative); Resp Syncy Virus RNA Qual PCR NEGATIVE (Negative); SARS COV2 PCR INHOUSE POSITIVE (Negative)
== END 2024-06-17 20:25 | disposition left against medical advice (07) ==
PROVIDERS: Physician Assistant; Emergency Provider Emergency Medicine
DX: R07.89 Other chest pain (principal); R06.02 Shortness of breath; M54.50 Low back pain, unspecified; F17.210 Nicotine dependence, cigarettes, uncomplicated; Z86.718 Personal history of other venous thrombosis and embolism; Z79.01 Long term (current) use of anticoagulants; Z03.818 Encounter for observation for suspected exposure to other biological agents ruled out; Z79.899 Other long term (current) drug therapy
CPT/HCPCS: 0241U; 36415; 71046; 71275; 80053; 84484; 85025; 85610; 93005; 94640; 94664; 99284; 99285; Q9967

== ENCOUNTER → 2024-06-17 11:53 | Outpatient (BNV) | payer OTHER, SELFPAY | PROVIDERS: Visit Provider Radiology Diagnostic Radiology | DX: R07.81 Pleurodynia (principal); J98.4 Other disorders of lung | CPT/HCPCS: 71275 ==

== ENCOUNTER → 2024-06-17 17:38 | Outpatient (BNV) | payer MEDICAID, SELFPAY | PROVIDERS: Emergency Provider Emergency Medicine; Visit Provider Internal Medicine Cardiovascular Disease | DX: R00.0 Tachycardia, unspecified (principal); R06.00 Dyspnea, unspecified | CPT/HCPCS: 93010 ==